=== PATIENT | male | born 1940 | race Caucasian/White ===

== ENCOUNTER → 2016-06-16 | Outpatient (CLI) | payer MEDICARE ==
[2016-06-16 10:52] LABS: ALT 73 U/L (21-72); AST 53 U/L (17-59); Cholesterol 108 mg/dL (<200); HDL Cholesterol 28 mg/dL (40-60); Triglycerides 212 mg/dL (<150)
== END | disposition home or self-care (01) ==
LOC: LABWHC1 09:51
PROVIDERS: ATTEND Internal Medicine Interventional Cardiology
DX: E78.2 Mixed hyperlipidemia (principal)
CPT/HCPCS: 36415; 80061; 84450; 84460

== ENCOUNTER → 2016-11-14 | Outpatient (CLI) | payer MEDICARE ==
[2016-11-14 10:56] LABS: ALT 66 U/L (21-72); AST 53 U/L (17-59); Alkaline Phosphatase 61 U/L (38-126); Anion Gap 8 mmol/L; Blood Urea Nitrogen 15 mg/dL (9-20); Calcium 9.2 mg/dL (8.4-10.2); Carbon Dioxide 26 mmol/L (22-30); Chloride 109 mmol/L (98-107); Cholesterol 117 mg/dL (<200); Glucose 112 mg/dL (74-99); HDL Cholesterol 29 mg/dL (40-60); Non-African American GFR(MDRD) >60 (>60 ml/min/1.73 sqM); Sodium 143 mmol/L (137-145); Total Bilirubin 0.4 mg/dL (0.2-1.3); Total Protein 6.9 g/dL (6.3-8.2)
== END | disposition home or self-care (01) ==
LOC: LABWHC1 09:45
PROVIDERS: ATTEND Internal Medicine Interventional Cardiology
DX: E78.2 Mixed hyperlipidemia (principal)
CPT/HCPCS: 36415; 80053; 80061

== ENCOUNTER 2016-12-06 16:07 | Emergency (ER) | payer MEDICARE ==
[2016-12-06 16:20] VITALS: RESP 18; TEMP 98.6
--- NOTE | 2016-12-06 16:43 | ED ---
General Adult HPI - General Chief complaint: Recheck/Abnormal Lab/Rx Stated complaint: Sent by PCP abnormal CT Time Seen by Provider: 12/06/16 16:27 Source: patient, RN notes reviewed, old records reviewed Mode of arrival: ambulatory Limitations: no limitations - History of Present Illness Initial comments: 76 yo male presents for evaluation after having an outpatient CT. CT did show a right subdural hematoma. He was called by his primary care physician and asked presented be leading emergency department. Patient has had a headache for the past 10-12 days. He did fall on November 25 striking the back of his head. There was momentary loss of consciousness, and approximately a 15 minute period where he was quite dazed. Patient was walking his dog at the time, tripped and fell backwards. He did not seek medical attention at that time. He presented to his primary care physician and CT was ordered. This did show 1.9 cm right sided subdural hematoma, no midline shift. Other than headache patient has no other complaints. No complaints of weakness. No vision changes. No nausea vomiting. - Related Data Home Medications Medication Instructions Recorded Confirmed Allopurinol [Zyloprim] 300 mg PO DAILY 10/06/15 12/06/16 Aspirin EC [Ecotrin] 162 mg PO DAILY 10/06/15 12/06/16 Cetirizine HCl [Zyrtec] 10 mg PO BID 10/06/15 12/06/16 Levothyroxine Sodium [Synthroid] 125 mcg PO DAILY 10/06/15 12/06/16 Losartan [Cozaar] 50 mg PO DAILY 10/06/15 12/06/16 Metoprolol Succinate (ER) [Toprol 50 mg PO HS 10/06/15 12/06/16 Xl] Multivitamins, Thera [Multivitamin] 1 tab PO HS 10/06/15 12/06/16 Probenecid/Colchicine 1 tab PO DAILY 10/06/15 12/06/16 [Probenecid-Colchicine Tabs] Simvastatin [Zocor] 20 mg PO HS 10/06/15 12/06/16 Fluticasone Nasal [place] [Flonase 1 - 2 spr EA NOSTRIL DAILY PRN 12/06/16 Nasal [place]] Allergies Allergy/AdvReac Type Severity Reaction Status Date / Time gluten Allergy Unknown Verified 12/06/16 16:51 Review of Systems ROS Statement: Those systems with pertinent positive or pertinent negative responses have been documented in the HPI. ROS Other: All systems not noted in ROS Statement are negative. Past Medical History Past Medical History: Cancer, Hypertension, Thyroid Disorder Additional Past Medical History / Comment(s): hx hiatal hernia, gout, skin cancer, celiac History of Any Multi-Drug Resistant Organisms: None Reported Past Surgical History: Coronary Bypass/CABG, Heart Catheterization With Stent, Orthopedic Surgery Additional Past Surgical History / Comment(s): rt knee arthroscopy, 6 cardiac stents, nohelia cataracts, vasectomy Past Anesthesia/Blood Transfusion Reactions: No Reported Reaction Date of Last Stent Placement:: approx 2010 Past Psychological History: No Psychological Hx Reported Smoking Status: Former smoker Past Alcohol Use History: None Reported Past Drug Use History: None Reported - Past Family History Mother Family Medical History: Cancer Sister(s) Family Medical History: Cancer Brother(s) Family Medical History: Cancer General Exam Limitations: no limitations General appearance: in no apparent distress Head exam: Present: atraumatic, normocephalic Eye exam: Present: normal appearance, PERRL ENT exam: Present: normal exam Neck exam: Present: normal inspection, full ROM. Absent: tenderness Respiratory exam: Present: normal lung sounds bilaterally, respiratory distress Cardiovascular Exam: Present: regular rate, normal rhythm GI/Abdominal exam: Present: soft, distended. Absent: tenderness, guarding Extremities exam: Present: normal inspection, full ROM, normal capillary refill. Absent: pedal edema Neurological exam: Present: alert, oriented X3, CN II-XII intact. Absent: motor sensory deficit Psychiatric exam: Present: normal affect, normal mood Skin exam: Present: warm, dry, intact. Absent: cyanosis, diaphoretic Course Vital Signs 12/06/16 16:16 Temperature 98.6 F Pulse Rate 69 Respiratory 18 Rate Blood Pressure 161/67 O2 Sat by Pulse 98 Oximetry EKG Findings - EKG Comments: EKG Findings:: EKG shows normal sinus rhythm, ventricular rate 69, CT of 156, QRS duration 92, QTC 447, no ST segment elevation or depression Medical Decision Making - Medical Decision Making 76 yo male presenting status post fall, this was proximally 12 days ago. Patient has had persistent headache. CT does show a right subdural hematoma 1.9 cm at its greatest dimension, no midline shift. Patient's neurologic exam is nonfocal. Laboratory studies are obtained while awaiting transfer to [facility] for trauma and neurosurgery evaluation. Patient has been ambulatory, has no other pain complaints. No other x-rays will be ordered at this time, patient may require additional x-rays at the time of evaluation at the receiving hospital. Diagnosis: Acute traumatic right subdural hematoma - Lab Data Result diagrams: 12/06/16 16:25 Lab Results 12/06/16 Range/Units 16:25 WBC 8.3 (3.8-10.6) k/uL RBC 4.18 L (4.30-5.90) m/uL Hgb 14.2 (13.0-17.5) gm/dL Hct 43.7 (39.0-53.0) % MCV 104.4 H (80.0-100.0) fL MCH 33.9 (25.0-35.0) pg MCHC 32.4 (31.0-37.0) g/dL RDW 14.6 (11.5-15.5) % Plt Count 183 (150-450) k/uL Neutrophils % 45 % Lymphocytes % 33 % Monocytes % 12 % Eosinophils % 4 % Basophils % 1 % Neutrophils # 3.8 (1.3-7.7) k/uL Lymphocytes # 2.8 (1.0-4.8) k/uL Monocytes # 1.0 (0-1.0) k/uL Eosinophils # 0.3 (0-0.7) k/uL Basophils # 0.1 (0-0.2) k/uL Macrocytosis Slight Critical Care Time Critical Care Time: Yes Total Critical Care Time: 35 Disposition Clinical Impression: Subdural hematoma Disposition: OTHER INSTITUTION NOT DEFINED Condition: Serious Referrals: Moe Ward MD [Primary Care Provider] - 1-2 days - Out of Hospital Transfer - Req. Specs Out of Hospital Transfer - Requested Specifics: Surgical ICU (Transferred to [facility], receiving Dr. Odom)
[2016-12-06 16:53] LABS: Basophils # (A) 0.1 k/uL (0-0.2); Basophils % (A) 1 %; CH 35.5; CHCM 34.2; Eosinophils # (A) 0.3 k/uL (0-0.7); Eosinophils % (A) 4 %; HCT 43.7 % (39.0-53.0); HDW 2.25; HGB 14.2 gm/dL (13.0-17.5); Luc # (Auto) 0.35; Luc % (Auto) 4; Lymphocytes # (A) 2.8 k/uL (1.0-4.8); Lymphocytes % (A) 33 %; MCH 33.9 pg (25.0-35.0); MCHC 32.4 g/dL (31.0-37.0); MCV 104.4 fL (80.0-100.0); Macrocytosis Slight; Mean Platelet Volume 7.6; Monocytes % (A) 12 %; Neutrophils # (A) 3.8 k/uL (1.3-7.7); Neutrophils % (A) 45 %; RBC 4.18 m/uL (4.30-5.90); RDW 14.6 % (11.5-15.5); WBC 8.3 k/uL (3.8-10.6); WBC (Perox) 8.05
[2016-12-06 17:02] LABS: INR 1.1 (<1.2); Partial Thromboplastin Time 24.6 sec (22.0-30.0); Prothrombin Time 11.1 sec (9.0-12.0)
[2016-12-06 17:05] LABS: ALT 47 U/L (21-72); AST 41 U/L (17-59); Alkaline Phosphatase 68 U/L (38-126); Anion Gap 12 mmol/L; Blood Urea Nitrogen 16 mg/dL (9-20); Calcium 9.3 mg/dL (8.4-10.2); Carbon Dioxide 21 mmol/L (22-30); Chloride 105 mmol/L (98-107); Glucose 105 mg/dL (74-99); Non-African American GFR(MDRD) >60 (>60 ml/min/1.73 sqM); Potassium 4.2 mmol/L (3.5-5.1); Sodium 138 mmol/L (137-145); Total Bilirubin 0.5 mg/dL (0.2-1.3); Total Protein 7.3 g/dL (6.3-8.2)
[2016-12-06 17:12] LABS: Creatine Kinase 132 U/L (55-170)
[2016-12-06 17:26] LABS: Creatine Kinase MB 1.3 ng/mL (0.0-2.4); Troponin I <0.012 ng/mL (0.000-0.034)
[2016-12-06 17:46] VITALS: BP 139/64; PULSE 67
== END 2016-12-06 18:04 | disposition other institution (70) ==
LOC: EC 16:07
DX: S06.5X9A Traumatic subdural hemorrhage with loss of consciousness of unspecified duration, initial encounter (principal); I10 Essential (primary) hypertension; E07.9 Disorder of thyroid, unspecified; Z85.828 Personal history of other malignant neoplasm of skin; Z87.891 Personal history of nicotine dependence; Z79.82 Long term (current) use of aspirin; Z79.899 Other long term (current) drug therapy; Z91.048 Other nonmedicinal substance allergy status; W01.10XA Fall on same level from slipping, tripping and stumbling with subsequent striking against unspecified object, initial encounter; Y93.K1 Activity, walking an animal
CPT/HCPCS: 36415; 70450; 80053; 82550; 82553; 84484; 85025; 85610; 85730; 86850; 86900; 86901; 93005; 99285

== ENCOUNTER → 2016-12-06 | Outpatient (CLI) | payer MEDICARE ==
--- NOTE | 2016-12-06 14:29 | CT ---
EXAMINATION TYPE: CT brain wo con DATE OF EXAM: 12/06/2016 COMPARISON: NONE HISTORY: Concussion CT DLP: [address] of the brain was performed. The ventricles, basal cisterns and sulci overlying the cerebral convexities demonstrate mild enlargem ent. There is a right-sided subdural hematoma which extends from the right frontal region through the harika etal occipital region. Greatest transverse measurement is 1.9 cm. No evidence for midline shift at th is point in time. No additional areas of hemorrhage seen. There is decreased attenuation about the periventricular white matter and deep white matter of both c erebral hemispheres, compatible with chronic small vessel ischemia. Differential diagnosis does inclu de demyelination. Osseous calvarium is intact. If symptoms persist consider MRI. IMPRESSION: 1. There is a right-sided subdural hematoma which extends from the right frontal region through the p arietal occipital region. Greatest transverse measurement is 1.9 cm. No evidence for midline shift at this point in time. Dr. Ward was notified of the aforementioned findings via telephone at approximately 2:22 PM on 2016
== END | disposition home or self-care (01) ==
LOC: RADCTMAIN 13:35
PROVIDERS: ATTEND Family Medicine
DX: S06.5X9A Traumatic subdural hemorrhage with loss of consciousness of unspecified duration, initial encounter (principal)
CPT/HCPCS: 70450

== ENCOUNTER → 2017-04-17 | Outpatient (CLI) | payer MEDICARE ==
--- NOTE | 2017-04-17 12:52 | CT ---
EXAMINATION TYPE: CT brain wo con DATE OF EXAM: 04/17/2017 HISTORY: Subdural Hemorrhage CT DLP: 1017.9 mGycm. Automated Exposure Control for Dose Reduction was Utilized. TECHNIQUE: CT scan of the head is performed without contrast. COMPARISON: CT scan of brain December 30, 2016 and older study December 06, 2016. FINDINGS: There is no acute intracranial hemorrhage or midline shift identified on current study. T here is near complete resolution of right-sided subdural hemorrhage with minimal residual hemorrhage seen superiorly measuring up to 4 mm in thickness coronal image 35. There is diffuse ventricular and sulcal prominence consistent with diffuse mild age-related cerebral atrophy. There is low-attenuatio n in the periventricular white matter consistent with chronic small vessel ischemic change. The glob es are intact and the visualized sinuses are clear. IMPRESSION: Near complete resolution of right subdural now chronic hemorrhage. No acute intracranial hemorrhage or midline shift is seen currently. There is mild diffuse age-related cerebral atrophy and moderate to severe chronic small vessel ischemic change redemonstrated.
== END | disposition home or self-care (01) ==
LOC: RADCTMAIN 12:16
PROVIDERS: ATTEND Neurological Surgery
DX: G31.9 Degenerative disease of nervous system, unspecified (principal); I67.82 Cerebral ischemia
CPT/HCPCS: 70450

== ENCOUNTER → 2017-06-15 | Outpatient (CLI) | payer MEDICARE ==
[2017-06-15 10:44] LABS: ALT 67 U/L (21-72); AST 53 U/L (17-59); Cholesterol 119 mg/dL (<200); HDL Cholesterol 33 mg/dL (40-60); LDL Cholesterol,Calculated 33 mg/dL (0-99); Triglycerides 267 mg/dL (<150)
== END | disposition home or self-care (01) ==
LOC: LABWHC1 10:05
PROVIDERS: ATTEND Internal Medicine Interventional Cardiology
DX: E78.2 Mixed hyperlipidemia (principal)
CPT/HCPCS: 36415; 80061; 84450; 84460

== ENCOUNTER → 2017-11-27 | Outpatient (CLI) | payer MEDICARE ==
[2017-11-27 11:18] LABS: ALT 46 U/L (21-72); AST 34 U/L (17-59); Albumin 3.9 g/dL (3.5-5.0); Alkaline Phosphatase 71 U/L (38-126); Anion Gap 8 mmol/L; Blood Urea Nitrogen 17 mg/dL (9-20); Calcium 9.1 mg/dL (8.4-10.2); Carbon Dioxide 25 mmol/L (22-30); Chloride 108 mmol/L (98-107); Cholesterol 115 mg/dL (<200); Glucose 101 mg/dL (74-99); HDL Cholesterol 26 mg/dL (40-60); LDL Cholesterol,Calculated 25 mg/dL (0-99); Potassium 5.1 mmol/L (3.5-5.1); Sodium 141 mmol/L (137-145); Total Bilirubin 0.3 mg/dL (0.2-1.3); Total Protein 6.9 g/dL (6.3-8.2); Triglycerides 322 mg/dL (<150)
== END ==
LOC: LABWHC1 09:44
PROVIDERS: ATTEND Internal Medicine Interventional Cardiology
DX: E78.2 Mixed hyperlipidemia (principal)
CPT/HCPCS: 36415; 80053; 80061

== ENCOUNTER → 2018-08-20 | Outpatient (CLI) | payer MEDICARE ==
--- NOTE | 2018-08-20 16:34 | XR ---
EXAMINATION TYPE: XR chest 2V DATE OF EXAM: 08/20/2018 COMPARISON: Prior chest x-ray 03/14/2012 HISTORY: Cough TECHNIQUE: Frontal and lateral views of the chest are obtained. FINDINGS: Patient is post median sternotomy. There is no focal air space opacity, pleural effusion, o r pneumothorax seen. The cardiac silhouette size is within normal limits. The osseous structures a re intact. Calcified granuloma again noted in the left upper lobe is stable. There is bronchial wall thickening. IMPRESSION: Correlate for bronchitis, reactive airways disease, follow-up as indicated.
== END | disposition home or self-care (01) ==
LOC: RADXRMAIN 16:02
PROVIDERS: ATTEND Family Medicine
DX: R05 Cough (principal)
CPT/HCPCS: 71046

== ENCOUNTER 2018-10-24 09:25 | Day surgery (SDC) | payer MEDICARE ==
[2018-10-19 15:47] VITALS: BMI 33.9
[~2018-10-24 09:25] MED LIST: LACTATED RINGERS 1,000 ML IV SCH; LIDOCAINE 1% 20 ML VIAL (10MG/ML) FOR IV START INTRADERMA PRN
[2018-10-24 10:14] VITALS: TEMP 98.1
[2018-10-24] MEDS ORDERED: PROPOFOL 10 MG/ML 20 ML VIAL IV ONE (11:04)
[2018-10-24] MEDS ORDERED: LIDOCAINE 1% INJ 10MG/ML (20 ML MDV) ONE (11:04)
--- NOTE | 2018-10-24 11:45 | P.PCN ---
Date of Procedure: 10/24/18 Procedure(s) Performed: Brief history: Patient is a pleasant 78-year-old white male, scheduled for an elective upper endoscopy as well as colonoscopy as a part of evaluation of history of celiac disease and recent change in bowel habits for the last 6 months duration. He has been on a strict gluten-free diet. Lately has been having intermittent diarrhea and lower abdominal discomfort. Last colonoscopy was 3 years ago and was noted to have multiple colon polyps. Procedure performed: Esophagogastroduodenoscopy Colonoscopy with snare polypectomy and tattooing with Lauren ink Preoperative diagnosis: History of celiac disease/change in bowel habits History of colon polyps Anesthesia: MAC Procedure: After informed consent was obtained from the patient was brought into the endoscopy unit and IV sedation was administered by anesthesia under continuous monitoring. Initially upper endoscopy was done. The Olympus GF 160 video endoscope was inserted inserted into the mouth and esophagus intubated without any difficulty and was gradually advanced into the stomach and duodenum and carefully examined. The bulb and second part of the duodenum and mild duodenitis and multiple biopsies were done from the second part of the duodenum because of history of celiac disease. The scope was then withdrawn into the stomach adequately insufflated with air and upon careful examination the antrum had mild gastritis. Biopsies were done from this area. The body, cardia and fundus appeared normal. The scope was then withdrawn into the esophagus. The GE junction was located at 40 cm to the incisors. It appeared regular with no erythema erosions or ulcerations. Rest of the esophagus appeared normal. Patient tolerated the procedure well. At this time the patient continued to remain sedation. Initial digital rectal examination was normal. Olympus CF 160 video colonoscope was then inserted into the rectum and gradually advanced to the cecum without any difficulty. Careful examination was performed as the scope was gradually being withdrawn. The prep was excellent. The cecum, appeared normal. In the ascending colon there was a 5 mm sessile polyp removed by snare polypectomy. In the transverse colon there were 4 polyps 3 of which measured 5-7 mm in size and the other one 1 cm that was removed by snare polypectomy. In the proximal descending colon there were 3 polyps all measuring between 5-6 mm in size removed by snare polypectomy. In the distal descending colon at 50 cm from the anal verge there was a 3 cm broad- based polyp that was partially removed by piecemeal snare polypectomy and complete polypectomy could not be accomplished. Tattooing was performed with Lauren ink. The rest of the ascending colon, transverse colon, descending colon, sigmoid colon and rectum appeared normal. Scattered similar diverticulosis seen. Retroflexion was performed in the rectum and no lesions were noted. Patient tolerated the procedure well. Impression: 1. Upper endoscopy revealed mild duodenitis and antral gastritis 2. Colonoscopy revealed: a) 5 mm sessile cecal polyp status post polypectomy b) 5-7 mm 3 and 1 cm broad-based transverse colon polyps status post polypectomy c) 3 polyps in the proximal descending colon measuring between 5 mm to 6 mm in size status post polypectomy d) 3 cm broad-based distal descending colon Polyp at 50 cm from the anal verge status post partial piecemeal snare polypectomy followed by tattooing with Lauren ink. Complete polypectomy not accomplished e) scattered similar diverticulosis Recommendations: Findings of this examination were discussed with the patient as well as his family. He was advised to follow with the biopsy results. He'll be seen in office in 1 week and based the biopsy results will plan a repeat colonoscopy in 3-6 months.. In the meantime he was advised to remain on a strict gluten-free diet.
[2018-10-24 11:48] VITALS: RESP 16
[2018-10-24 12:08] VITALS: BP 166/90; PULSE 60
== END 2018-10-24 12:36 | disposition home or self-care (01) ==
LOC: ORWHC2ENDO 09:25
PROVIDERS: ATTEND Internal Medicine Gastroenterology
DX: K90.0 Celiac disease (principal); Z86.010 Personal history of colon polyps; K29.80 Duodenitis without bleeding; K29.50 Unspecified chronic gastritis without bleeding; K57.30 Diverticulosis of large intestine without perforation or abscess without bleeding; B96.81 Helicobacter pylori [H. pylori] as the cause of diseases classified elsewhere; D12.2 Benign neoplasm of ascending colon; D12.3 Benign neoplasm of transverse colon; D12.4 Benign neoplasm of descending colon; D12.0 Benign neoplasm of cecum; Z88.1 Allergy status to other antibiotic agents; Z91.018 Allergy to other foods; I25.10 Atherosclerotic heart disease of native coronary artery without angina pectoris; I10 Essential (primary) hypertension; E78.5 Hyperlipidemia, unspecified; Z87.891 Personal history of nicotine dependence; E07.9 Disorder of thyroid, unspecified; M10.9 Gout, unspecified; Z79.890 Hormone replacement therapy; Z79.899 Other long term (current) drug therapy
CPT/HCPCS: 45385; 43239; 44404; J2001; J2704; 88305; 88342

== ENCOUNTER → 2018-11-06 | Outpatient (CLI) | payer MEDICARE | END | disposition home or self-care (01) | LOC: LABPAT 16:40 | PROVIDERS: ATTEND Surgery | DX: Z01.818 Encounter for other preprocedural examination (principal); Z01.812 Encounter for preprocedural laboratory examination; K63.5 Polyp of colon | CPT/HCPCS: 80051; 85025; 86850; 86900; 86901; 93005 ==

== ENCOUNTER 2018-11-15 05:44 | Inpatient (IN) | payer MEDICARE ==
[2018-11-06 17:07] LABS: Basophils # (A) 0.1 k/uL (0-0.2); Basophils % (A) 1 %; Eosinophils # (A) 0.2 k/uL (0-0.7); Eosinophils % (A) 3 %; HGB 13.6 gm/dL (13.0-17.5); Lymphocytes # (A) 3.5 k/uL (1.0-4.8); Lymphocytes % (A) 42 %; MCH 33.9 pg (25.0-35.0); MCHC 33.2 g/dL (31.0-37.0); MCV 102.1 fL (80.0-100.0); Macrocytosis Slight; Mean Platelet Volume 7.8; Monocytes # (A) 0.7 k/uL (0-1.0); Monocytes % (A) 8 %; Neutrophils # (A) 3.6 k/uL (1.3-7.7); Neutrophils % (A) 42 %; Platelet Count 204 k/uL (150-450); RBC 4.02 m/uL (4.30-5.90); RDW 15.8 % (11.5-15.5); WBC 8.4 k/uL (3.8-10.6)
[2018-11-06 17:32] LABS: Potassium 4.9 mmol/L (3.5-5.1)
[2018-11-12 16:22] VITALS: BMI 33.4
[~2018-11-15 05:44] MED LIST changes: +HEPARIN SODIUM,PORCINE 5,000 UNIT/ML 1 ML VIAL SQ ONE; -LACTATED RINGERS 1,000 ML IV SCH; -LIDOCAINE 1% 20 ML VIAL (10MG/ML) FOR IV START INTRADERMA PRN; +metroNIDAZOLE-NS PMX 500 MG in SALINE 1 100ML.BAG IVPB ONE
[2018-11-15] MEDS ORDERED: LIDOCAINE 1% 20 ML VIAL (10MG/ML) FOR IV START INTRADERMA PRN (05:57)
[2018-11-15] MEDS ORDERED: ONDANSETRON 4 MG/2 ML VIAL IVP ONE (05:57)
[2018-11-15] MEDS ORDERED: DEXAMETHASONE SOD PHOSPHATE 10 MG/ML 1 ML VIAL IV ONE (05:57)
[2018-11-15] MEDS ORDERED: SCOPOLAMINE 1.5MG/72HR PATCH TRANSDERM ONE (05:57)
[2018-11-15] MEDS ORDERED: HYDROmorphone 0.5 MG/0.5 ML SYRINGE IVP PRN (05:57)
[2018-11-15] MEDS: LACTATED RINGERS 1,000 ML IV SCH (06:27)
[2018-11-15] MEDS ORDERED: MIDAZOLAM PF (FBP) 2 MG/2 ML VIAL IV ONE (07:02)
[2018-11-15] MEDS ORDERED: NALBUPHINE 10 MG/ML (1 ML AMP) IV PRN (07:32)
[2018-11-15] MEDS ORDERED: ROPIVACAINE 400 MG, HYDROMORPHONE (PF) 5 MG in SODIUM CHLORIDE 0.9% 170 ML EPIDURAL PRN (07:32)
[2018-11-15] MEDS ORDERED: diphenhydrAMINE 50 MG/ML 1 ML VIAL IVP PRN (07:32)
[2018-11-15] MEDS ORDERED: NALOXONE 0.4 MG/ML 1 ML VIAL IV PRN (07:32)
[2018-11-15] MEDS ORDERED: PHENYLEPHRINE-0.9% NACL SYG 1 MG/10 ML SYRINGE ONE (07:43)
[2018-11-15] MEDS ORDERED: ePHEDrine SULFATE/0.9% NACL/PF 50 MG/5 ML SYRINGE IV ONE (07:43)
[2018-11-15] MEDS ORDERED: fentaNYL (PF) 50 MCG/ML 2 ML AMP ONE (07:43)
[2018-11-15] MEDS ORDERED: ROCURONIUM BROMIDE 10 MG/ML 10 ML VIAL IV ONE (07:43)
[2018-11-15] MEDS ORDERED: GLYCOPYRROLATE 0.2 MG/ML 2 ML VIAL ONE (07:43)
[2018-11-15] MEDS ORDERED: LIDOCAINE 1% INJ 10MG/ML (20 ML MDV) ONE (07:43)
[2018-11-15] MEDS ORDERED: KETOROLAC 30 MG/ML 1 ML VIAL ONE (07:43)
[2018-11-15] MEDS ORDERED: MIDAZOLAM 2 MG/2 ML VIAL ONE (07:43)
[2018-11-15] MEDS ORDERED: PROPOFOL 10 MG/ML 20 ML VIAL IV ONE (07:43)
[2018-11-15] MEDS ORDERED: NEOSTIGMINE 1 MG/ML 10 ML VIAL ONE (07:43)
[2018-11-15] MEDS ORDERED: ALVIMOPAN 12 MG CAPSULE PO ONE (07:44)
--- NOTE | 2018-11-15 07:55 | P.GSHP ---
History of Present Illness H&P Date: 11/15/18 Chief Complaint: Left colon polyp This a 78-year-old male who underwent previous colonoscopy by Dr. Gallegos. Patient's found to have aTubular adenoma with focal high grade dysplasia. Evaluation focally limited due to severe distorting cautery artifact. Patient presents today for laparoscopic left colectomy. Past Medical History Past Medical History: Coronary Artery Disease (CAD), Cancer, Hyperlipidemia, Hypertension, Thyroid Disorder Additional Past Medical History / Comment(s): colon polyps, hx hiatal hernia, gout, basal cell skin cancer, celiac History of Any Multi-Drug Resistant Organisms: None Reported Past Surgical History: Coronary Bypass/CABG, Heart Catheterization With Stent, Orthopedic Surgery Additional Past Surgical History / Comment(s): rt knee arthroscopy, 6 cardiac stents, nohelia cataracts, vasectomy, colonoscopy Past Anesthesia/Blood Transfusion Reactions: No Reported Reaction Date of Last Stent Placement:: 2010 Smoking Status: Former smoker - Past Family History Mother Family Medical History: Cancer Sister(s) Family Medical History: Cancer Brother(s) Family Medical History: Cancer Medications and Allergies Home Medications Medication Instructions Recorded Confirmed Type Allopurinol [Zyloprim] 300 mg PO DAILY 10/06/15 11/15/18 History Aspirin EC [Ecotrin] 81 mg PO DAILY 10/06/15 11/15/18 History Cetirizine HCl [Zyrtec] 10 mg PO BID 10/06/15 11/15/18 History Levothyroxine Sodium [Synthroid] 125 mcg PO DAILY 10/06/15 11/15/18 History Losartan [Cozaar] 50 mg PO DAILY 10/06/15 11/15/18 History Metoprolol Succinate (ER) [Toprol 50 mg PO HS 10/06/15 11/15/18 History Xl] Multivitamins, Thera [Multivitamin] 1 tab PO HS 10/06/15 11/15/18 History Probenecid/Colchicine 1 tab PO DAILY 10/06/15 11/15/18 History [Probenecid-Colchicine Tabs] Simvastatin [Zocor] 20 mg PO HS 10/06/15 11/15/18 History Fluticasone Nasal [place] [Flonase 1 - 2 spr EA NOSTRIL DAILY PRN 12/06/16 11/15/18 History Nasal [place]] Dicyclomine [Bentyl] 10 mg PO TID PRN 10/19/18 11/15/18 History Allergies Allergy/AdvReac Type Severity Reaction Status Date / Time gluten Allergy celiac dx Verified 11/15/18 06:26 erythromycin base AdvReac Nausea & Verified 11/15/18 06:26 Vomiting & Diarrhea Surgical - Exam Vital Signs Temp Pulse Resp BP Pulse Ox 97 F L 63 16 175/77 97 11/15/18 06:41 11/15/18 06:41 11/15/18 06:41 11/15/18 06:41 11/15/18 06:41 - General well developed, well nourished, no distress - Eyes PERRL - ENT normal pinna - Neck no masses - Respiratory normal expansion - Cardiovascular Rhythm: regular - Abdomen Abdomen: soft, non tender Results - Labs 11/06/18 16:51 11/06/18 16:51 Assessment and Plan Assessment: Left colon polyp with high-grade dysplasia. Patient will undergo laparoscopic left colectomy. Patient with a risk of surgery including conversion to the open procedure and injury to bowel and possible colostomy.
[2018-11-15] MEDS ORDERED: BUPIVACAINE (PF) 0.25% 30 ML VIAL SQ ONE (08:34)
[2018-11-15] MEDS ORDERED: LACTATED RINGERS 1,000 ML IV ONE (09:09)
[2018-11-15] MEDS ORDERED: ONDANSETRON 4 MG/2 ML VIAL IVP PRN (10:37)
[2018-11-15] MEDS: D5-0.45% NACL WITH KCL 20MEQ/L 1,000 ML IV SCH ×2 (13:50→20:06)
[2018-11-15] MEDS ORDERED: FLUTICASONE 50MCG/SPRAY NASAL 16GM EA NOSTRIL PRN (14:26)
[2018-11-15] MEDS: METOPROLOL SUCCINATE (ER) 50 MG TAB.ER.24H PO SCH (20:05)
[2018-11-15] MEDS ORDERED: SODIUM CHLORIDE 0.9% 500 ML 500 ML IV ONE (21:21)
[2018-11-15] MEDS: ATORVASTATIN 10 MG TAB PO SCH (21:38)
--- NOTE | 2018-11-15 22:05 | P.PN ---
Progress Note - Text Progress Note Date: 11/15/18 Anesthesia Called to see patient regarding low blood pressure with epidural in place. Verbal order given to pause epidural for 4 hours and give 500cc 0.9 NaCl bolus. By my arrival, patient's blood pressure has already recovered. Mental status was improving. BP returned to 90s over 60s. Communication order given for a second 500cc bolus 0.9 NaCl bolus should bp fall below 90 systolic again. VS q15 minutes x8, then routine. Update: Followed up an hour later at 10pm. Patient was wide awake and a&0x3. Pain free and conversational. Reconfirmed with nurse to continue holding epidural for 4 hours and resume at half original rate. An additional bolus has been ordered PRN as well. BP holding in the 90's systolic.
--- NOTE | 2018-11-15 22:53 | P.CONS ---
History of Present Illness - Reason for Consult Consult date: 11/15/18 - Chief Complaint History of high-grade dysplasia colon polyp - History of Present Illness This is a consultation on an 78-year-old white male with known history of previous colon polyps who had repeat colonoscopy and was found to have a high- grade dysplasia adenoma. Laparoscopic colectomy was performed. The patient is now seen postoperatively. He has an underlying history of hypertension which has been fairly well controlled. No significant nausea, vomiting or diarrhea stated. He has an underlying history of gluten and erythromycin allergy. Review of Systems Constitutional: Denies chills, Denies fever Eyes: denies blurred vision, denies pain Ears, nose, mouth and throat: Denies headache, Denies sore throat Cardiovascular: Denies chest pain, Denies shortness of breath Respiratory: Denies cough Musculoskeletal: Denies myalgias Integumentary: Denies pruritus, Denies rash Neurological: Denies numbness, Denies weakness Endocrine: Denies fatigue, Denies weight change Past Medical History Past Medical History: Coronary Artery Disease (CAD), Cancer, Hyperlipidemia, Hypertension, Thyroid Disorder Additional Past Medical History / Comment(s): colon polyps, hx hiatal hernia, gout, basal cell skin cancer, celiac History of Any Multi-Drug Resistant Organisms: None Reported Past Surgical History: Coronary Bypass/CABG, Heart Catheterization With Stent, Orthopedic Surgery Additional Past Surgical History / Comment(s): rt knee arthroscopy, 6 cardiac stents, nohelia cataracts, vasectomy, colonoscopy Past Anesthesia/Blood Transfusion Reactions: No Reported Reaction Date of Last Stent Placement:: 2010 Past Psychological History: No Psychological Hx Reported Smoking Status: Former smoker Past Alcohol Use History: Rare Additional Past Alcohol Use History / Comment(s): quit smoking 1978, smoked for 30 yrs, 1 PPD Past Drug Use History: None Reported - Past Family History Mother Family Medical History: Cancer Sister(s) Family Medical History: Cancer Brother(s) Family Medical History: Cancer Medications and Allergies Home Medications Medication Instructions Recorded Confirmed Type Allopurinol [Zyloprim] 300 mg PO DAILY 10/06/15 11/15/18 History Aspirin EC [Ecotrin] 81 mg PO DAILY 10/06/15 11/15/18 History Cetirizine HCl [Zyrtec] 10 mg PO BID 10/06/15 11/15/18 History Levothyroxine Sodium [Synthroid] 125 mcg PO DAILY 10/06/15 11/15/18 History Losartan [Cozaar] 50 mg PO DAILY 10/06/15 11/15/18 History Metoprolol Succinate (ER) [Toprol 50 mg PO HS 10/06/15 11/15/18 History Xl] Multivitamins, Thera [Multivitamin] 1 tab PO HS 10/06/15 11/15/18 History Probenecid/Colchicine 1 tab PO DAILY 10/06/15 11/15/18 History [Probenecid-Colchicine Tabs] Simvastatin [Zocor] 20 mg PO HS 10/06/15 11/15/18 History Fluticasone Nasal [place] [Flonase 1 - 2 spr EA NOSTRIL DAILY PRN 12/06/16 11/15/18 History Nasal [place]] Dicyclomine [Bentyl] 10 mg PO TID PRN 10/19/18 11/15/18 History Hydrocodone/Acetaminophen [[place] 1 tab PO Q4HR PRN 3 Days #18 tab 11/15/18 Rx 5-325] Allergies Allergy/AdvReac Type Severity Reaction Status Date / Time gluten Allergy celiac dx Verified 11/15/18 06:26 erythromycin base AdvReac Nausea & Verified 11/15/18 06:26 Vomiting & Diarrhea Physical Exam Vitals: Vital Signs Temp Pulse Resp BP BP Pulse Ox 11/15/18 21:06 14 98/57 96 11/15/18 20:55 98.4 F 88 12 62/41 92 L 11/15/18 19:00 98.0 F 78 18 93/56 96 11/15/18 15:24 78 16 11/15/18 14:22 97.7 F 78 16 93/51 95 11/15/18 13:00 75 93/54 11/15/18 12:45 71 97/53 11/15/18 12:30 72 97/55 11/15/18 12:15 72 85/49 11/15/18 12:00 79 84/52 11/15/18 11:45 74 103/49 11/15/18 11:30 70 108/52 11/15/18 11:15 73 127/68 11/15/18 11:00 97.8 F 72 14 121/63 96 11/15/18 10:31 73 16 154/70 99 09/19/19 10:15 73 16 161/69 99 11/15/18 10:07 97.6 F 80 16 185/81 99 11/15/18 06:41 97 F L 63 16 175/77 97 Intake and Output 11/15/18 11/15/18 11/15/18 06:59 14:59 22:59 Intake Total 200 2638 29.4 Output Total 700 Balance 200 1938 29.4 Intake: IV 200 1716 Intake, IV Titration 822 29.4 Amount Lactated Ringers 1,000 ml 800 @ 20 mls/hr IV .Q24H HEATHER Rx#:[id number] Ropivacaine 400 mg 22 29.4 Hydromorphone (Pf) 5 mg In Sodium Chloride 0.9% 170 ml @ Per Protocol EPIDURAL .Q0M PRN Rx#: [id number] Oral 100 Output: Urine 600 Estimated Blood Loss 100 Other: Voiding Method Indwelling Catheter - Constitutional General appearance: no acute distress - EENT Eyes: EOMI - Neck Neck: no lymphadenopathy - Respiratory Respiratory: bilateral: CTA - Cardiovascular Rhythm: regular Heart sounds: normal: S1, S2 Abnormal Heart Sounds: no S3 Gallop - Gastrointestinal General gastrointestinal: soft, no tenderness - Musculoskeletal Musculoskeletal: strength equal bilaterally - Psychiatric Psychiatric: A&O x's 3, appropriate affect, intact judgment & insight Results CBC & Chem 7: 11/06/18 16:51 11/06/18 16:51 Assessment and Plan (1) Hyperlipidemia Current Visit: Yes Status: Acute Code(s): E78.5 - HYPERLIPIDEMIA, UNSPECIFIED SNOMED Code(s): 59172842 (2) History of colectomy Current Visit: Yes Status: Acute Code(s): Z90.49 - ACQUIRED ABSENCE OF OTHER SPECIFIED PARTS OF DIGESTIVE TRACT SNOMED Code(s): 779203874 (3) Hypertension Current Visit: Yes Status: Acute Code(s): I10 - ESSENTIAL (PRIMARY) HYPERTENSION SNOMED Code(s): 05249044 (4) Gout Current Visit: Yes Status: Acute Code(s): M10.9 - GOUT, UNSPECIFIED SNOMED Code(s): 16679623 (5) Tubulovillous adenoma Current Visit: Yes Status: Acute Code(s): D36.9 - BENIGN NEOPLASM, UNS PECIFIED SITE SNOMED Code(s): 755913546 Plan: Reconcile medications. Restart antihypertensive medications. Diet to be advanced as per surgery. Check CBC and CMP in a.m. Dr. Sandoval's group will be covering for the weekend. Time with Patient: Greater than 30
[2018-11-16] MEDS ORDERED: SODIUM CHLORIDE 0.9% 500 ML 500 ML IV ONE (01:20)
[2018-11-16] MEDS: D5-0.45% NACL WITH KCL 20MEQ/L 1,000 ML IV SCH ×3 (02:01→16:22)
[2018-11-16] MEDS: LACTATED RINGERS 1,000 ML IV SCH (02:02)
[2018-11-16] MEDS: LEVOTHYROXINE 125 MCG TAB PO SCH (05:11)
--- NOTE | 2018-11-16 07:24 | P.PN ---
Progress Note - Text Progress Note Date: 11/16/18 post op day one status post left hemicolectomy ,epidural catheter placed for post op pain control , epidural infusion was at 4 ml/h , pateints developed hypotensions ,epidural infusions was on hold ovenights , currenely blood pressures within normal limits , ,we will restart the epidural infusion at 3ml /h , we will follow up
[2018-11-16] MEDS: LOSARTAN 50 MG TAB PO SCH (09:01)
[2018-11-16] MEDS: ALVIMOPAN 12 MG CAPSULE PO SCH ×2 (09:04→20:17)
[2018-11-16] MEDS: ALLOPURINOL 300 MG TAB PO SCH (09:04)
[2018-11-16] MEDS ORDERED: ONDANSETRON 4 MG/2 ML VIAL IVP PRN (12:03)
[2018-11-16] MEDS: FAMOTIDINE 20 MG TAB PO SCH ×2 (12:08→20:17)
--- NOTE | 2018-11-16 12:33 | P.PN ---
Progress Note - Text Progress Note Date: 11/16/18 The patient is resting comfortably in his bed. He denies any significant abdominal pain. On exam his vital signs are stable. His abdomen soft. His incision site is clean dry tach. Status post left colectomy for colonic polyp. Patient remained on clear liquid diet.
--- NOTE | 2018-11-16 14:59 | P.PN ---
Subjective On-call hospitalist covering for Dr. Ward on Monday and over the weekend This is a pleasant 78 years old male with past medical history of coronary artery disease, hyperlipidemia, hypertension, hypothyroidism, status post CABG and stent placement . He was admitted for laparoscopic left colectomy for tubular adenoma with focal high-grade dysplasia on colonoscopy done recently for him, however patient ended up having open cholectomy with colocolic anastomosis. Today is postop day 1. Patient is doing well with no abdominal pain. He was getting out of bed to chair. Vitals are stable. Hemoglobin stable at 13.6, no leukocytosis. He is on D5 half-normal saline at 1 20 mg/h, also he is on Dilaudid for pain. Objective - Vital Signs Vital signs: Vital Signs Temp 99.1 F 11/16/18 14:07 Pulse 82 11/16/18 14:07 Resp 16 11/16/18 14:07 BP 120/63 11/16/18 14:07 Pulse Ox 97 11/16/18 14:07 Intake & Output 11/15/18 11/16/18 11/16/18 18:59 06:59 18:59 Intake Total 2667.4 480 708 Output Total 700 200 650 Balance 1967.4 280 58 Intake: IV 1716 Intake, IV Titration 851.4 708 Amount D5-0.45% NaCl with KCl 625 20Meq/l 1,000 ml @ 125 mls/hr IV .Q8H [facility] Rx#: [id number] Lactated Ringers 1,000 ml 800 @ 20 mls/hr IV .Q24H [facility] Rx#:[id number] Ropivacaine 400 mg 51.4 83 Hydromorphone (Pf) 5 mg In Sodium Chloride 0.9% 170 ml @ Per Protocol EPIDURAL .Q0M PRN Rx#: [id number] Oral 100 480 Output: Urine 600 200 650 Uretheral (Grover) 650 Estimated Blood Loss 100 Other: Voiding Method Indwelling Catheter Indwelling Catheter - Exam GENERAL: The patient is alert and oriented x3, not in any acute distress. Well developed, well nourished. HEENT: Pupils are round and equally reacting to light. EOMI. No scleral icterus. No conjunctival pallor. Normocephalic, atraumatic. No pharyngeal erythema. No thyromegaly. CARDIOVASCULAR: S1 and S2 present. No murmurs, rubs, or gallops. PULMONARY: Chest is clear to auscultation, no wheezing or crackles. -ABDOMEN: Soft, nontender, nondistended, normoactive bowel sounds. No palpable organomegaly. Vertical wound in the midline, with dressing in place, right side puncture wound for laparoscopic with roman in place. MUSCULOSKELETAL: No joint swelling or deformity. EXTREMITIES: No cyanosis, clubbing, or pedal edema. NEUROLOGICAL: Gross neurological examination did not reveal any focal deficits. SKIN: No rashes. no petechiae. - Labs CBC & Chem 7: 11/06/18 16:51 11/06/18 16:51 Assessment and Plan Assessment: Status post open left colectomy for tubular adenoma with focal high-grade dysplasia history of coronary artery disease status post CABG and stent placement in Hypertension Hyperlipidemia Hypothyroidism Plan: This is a pleasant 78 years old male who presents for left colectomy for tubular adenoma with focal hyperplasia. Postoperative care postprimary surgical team as well as pain management. Patient is doing well. Continue with pain management, he also gets epidural which be followed closely by anesthesiologist, continue with IV fluid, check electrolytes. Patient is on a clear liquid diet currently. Monitor vitals and labs.Labs and medication were reviewed.. Continue same treatment. Continue with symptomatic treatment. Resume home medication. Monitor lytes and vitals. DVT and GI prophylaxis. Further recommendations of the clinical course of the patient DVT prophylaxis: As per the primary surgical team, we recommend subcu heparin 5000 units twice a day if it's okay with surgical team GI Prophylaxis: Pepcid
[2018-11-16] MEDS ORDERED: diphenhydrAMINE 25 MG CAP PO PRN (15:48)
[2018-11-16 16:13] LABS: Calcium 8.4 mg/dL (8.4-10.2); Potassium 4.5 mmol/L (3.5-5.1)
[2018-11-16] MEDS: METOPROLOL SUCCINATE (ER) 50 MG TAB.ER.24H PO SCH (20:17)
[2018-11-16] MEDS: ATORVASTATIN 10 MG TAB PO SCH (20:17)
[2018-11-16] MEDS: HEPARIN SODIUM,PORCINE 5,000 UNIT/ML 1 ML VIAL SQ SCH (20:17)
[2018-11-16] MEDS: D5-0.9% NACL WITH KCL 20 MEQ/L 1,000 ML IV SCH (22:50)
[2018-11-17] MEDS: LACTATED RINGERS 1,000 ML IV SCH (05:44)
[2018-11-17] MEDS: D5-0.45% NACL WITH KCL 20MEQ/L 1,000 ML IV SCH (05:47)
[2018-11-17] MEDS: LEVOTHYROXINE 125 MCG TAB PO SCH (05:48)
[2018-11-17 08:18] LABS: Calcium 8.5 mg/dL (8.4-10.2)
[2018-11-17 08:19] LABS: Basophils # (A) 0.2 k/uL (0-0.2); Basophils % (A) 2 %; Eosinophils # (A) 0.2 k/uL (0-0.7); Eosinophils % (A) 1 %; HGB 11.3 gm/dL (13.0-17.5); Lymphocytes # (A) 2.1 k/uL (1.0-4.8); Lymphocytes % (A) 15 %; MCH 34.2 pg (25.0-35.0); MCHC 33.2 g/dL (31.0-37.0); Macrocytosis Slight; Monocytes # (A) 1.5 k/uL (0-1.0); Monocytes % (A) 10 %; Neutrophils # (A) 10.1 k/uL (1.3-7.7); Neutrophils % (A) 70 %; Platelet Count 147 k/uL (150-450); RDW 14.3 % (11.5-15.5); WBC 14.4 k/uL (3.8-10.6)
[2018-11-17 08:33] LABS: Potassium 4.9 mmol/L (3.5-5.1)
[2018-11-17] MEDS: LOSARTAN 50 MG TAB PO SCH (09:02)
[2018-11-17] MEDS: HEPARIN SODIUM,PORCINE 5,000 UNIT/ML 1 ML VIAL SQ SCH ×2 (09:02→21:22)
[2018-11-17] MEDS: ALLOPURINOL 300 MG TAB PO SCH (09:02)
[2018-11-17] MEDS: FAMOTIDINE 20 MG TAB PO SCH ×2 (09:02→21:22)
[2018-11-17] MEDS: ALVIMOPAN 12 MG CAPSULE PO SCH ×2 (09:02→21:22)
[2018-11-17] MEDS: ALBUTEROL NEBULIZED 2.5 MG/3 ML INHALATION PRN ×3 (10:00→20:41)
--- NOTE | 2018-11-17 10:50 | P.PN ---
Subjective Progress Note Date: 11/17/18 Principal diagnosis: Colon mass Patient doing well today. Pain is well-controlled. He is out of bed into the chair. No flatus. Increased belching. Objective - Vital Signs Vital signs: Vital Signs Temp 98.6 F 11/17/18 07:35 Pulse 80 11/17/18 10:11 Resp 18 11/17/18 07:35 BP 144/71 11/17/18 07:35 Pulse Ox 95 11/17/18 07:35 Intake & Output 11/16/18 11/17/18 11/17/18 18:59 06:59 18:59 Intake Total 708 950 Output Total 2049 3500 Balance -1342 950 -3500 Intake: Intake, IV Titration 708 900 Amount D5-0.45% NaCl with KCl 625 20Meq/l 1,000 ml @ 125 mls/hr IV .Q8H [facility] Rx#: [id number] D5-0.9% NaCl with KCl 20 900 Meq/l 1,000 ml @ 75 mls/ hr IV .[id number] [facility] Rx#: [id number] Ropivacaine 400 mg 83 Hydromorphone (Pf) 5 mg In Sodium Chloride 0.9% 170 ml @ Per Protocol EPIDURAL .Q0M PRN Rx#: [id number] Oral 50 Output: Urine 2049 3500 Uretheral (Grover) 2049 Other: Voiding Method Indwelling Catheter Indwelling Catheter Indwelling Catheter # Voids 2 - Exam Abdomen: Soft, mild distention, dressing clean and dry, mild tenderness - Labs CBC & Chem 7: 11/17/18 06:50 11/17/18 06:50 Labs: Abnormal Lab Results - Last 24 Hours (Table) 11/16/18 11/17/18 11/17/18 Range/Units 15:08 06:50 06:50 WBC 14.4 H (3.8-10.6) k/uL RBC 3.30 L (4.30-5.90) m/uL Hgb 11.3 L (13.0-17.5) gm/dL Hct 34.0 L (39.0-53.0) % MCV 103.0 H (80.0-100.0) fL Plt Count 147 L (150-450) k/uL Neutrophils # 10.1 H (1.3-7.7) k/uL Monocytes # 1.5 H (0-1.0) k/uL Sodium 132 L 135 L (137-145) mmol/L Carbon Dioxide 19 L 21 L (22-30) mmol/L BUN 27 H (9-20) mg/dL Creatinine 1.38 H (0.66-1.25) mg/dL Glucose 125 H 119 H (74-99) mg/dL Assessment and Plan (1) Tubulovillous adenoma Narrative/Plan: Patient doing fairly well after recent colectomy. Continue increasing activity. We'll consult physical therapy. Repeat labs tomorrow. Stay on clears. Current Visit: Yes Status: Acute Code(s): D36.9 - BENIGN NEOPLASM, UNSPECIFIED SITE SNOMED Code(s): 217265939
--- NOTE | 2018-11-17 11:06 | P.PN ---
Progress Note - Text Progress Note Date: 11/17/18 Patient's postop day 2 catheter day #3 from a left hemicolectomy. His blood pressure has maintained overnight with the current settings. He was decreased yesterday secondary to hypotension. This time he's been able to get out of bed with minimal discomfort. He doesn't have any radicular symptoms or any numbness or tingling in his legs. He is able to stand. Denies any altered mental status or increased pruritus. We will likely continue epidural catheter for 1 more day.
[2018-11-17] MEDS: D5-0.9% NACL WITH KCL 20 MEQ/L 1,000 ML IV SCH ×2 (12:33→21:24)
[2018-11-17] MEDS: ATORVASTATIN 10 MG TAB PO SCH (21:22)
[2018-11-17] MEDS: METOPROLOL SUCCINATE (ER) 50 MG TAB.ER.24H PO SCH (21:22)
[2018-11-18] MEDS: LACTATED RINGERS 1,000 ML IV SCH (03:18)
[2018-11-18] MEDS: LEVOTHYROXINE 125 MCG TAB PO SCH (05:09)
[2018-11-18 06:52] LABS: Basophils # (A) 0.1 k/uL (0-0.2); Basophils % (A) 1 %; Eosinophils # (A) 0.2 k/uL (0-0.7); Eosinophils % (A) 2 %; HCT 31.4 % (39.0-53.0); HGB 10.8 gm/dL (13.0-17.5); Lymphocytes # (A) 2.2 k/uL (1.0-4.8); Lymphocytes % (A) 19 %; MCH 34.5 pg (25.0-35.0); MCHC 34.4 g/dL (31.0-37.0); MCV 100.2 fL (80.0-100.0); Macrocytosis Slight; Mean Platelet Volume 8.4; Monocytes % (A) 9 %; Neutrophils # (A) 7.7 k/uL (1.3-7.7); Neutrophils % (A) 67 %; Platelet Count 112 k/uL (150-450); RBC 3.13 m/uL (4.30-5.90); RDW 15.9 % (11.5-15.5); WBC 11.5 k/uL (3.8-10.6)
[2018-11-18 07:53] LABS: Anion Gap 3 mmol/L; Blood Urea Nitrogen 11 mg/dL (9-20); Carbon Dioxide 26 mmol/L (22-30); Chloride 106 mmol/L (98-107); Glucose 110 mg/dL (74-99); Potassium 4.5 mmol/L (3.5-5.1); Sodium 135 mmol/L (137-145)
[2018-11-18 07:54] LABS: African American GFR (CKD) >90 (>60 ml/min/1.73 sqM); Calcium 8.6 mg/dL (8.4-10.2)
[2018-11-18] MEDS: FAMOTIDINE 20 MG TAB PO SCH ×2 (09:46→21:01)
[2018-11-18] MEDS: LOSARTAN 50 MG TAB PO SCH (09:46)
[2018-11-18] MEDS: ALVIMOPAN 12 MG CAPSULE PO SCH ×2 (09:46→21:01)
[2018-11-18] MEDS: ALLOPURINOL 300 MG TAB PO SCH (09:46)
[2018-11-18] MEDS: HEPARIN SODIUM,PORCINE 5,000 UNIT/ML 1 ML VIAL SQ SCH ×2 (09:53→21:01)
--- NOTE | 2018-11-18 11:00 | P.PN ---
Progress Note - Text Progress Note Date: 11/18/18 He had been doing pretty well with the epidural. He is postop day 3 catheter day #4 from a left hemicolectomy with Dr. Broderick. Catheter to be discontinued today. Discussed with nurse.
--- NOTE | 2018-11-18 11:06 | P.PN ---
Subjective Progress Note Date: 11/18/18 Principal diagnosis: Colon mass Patient doing well today. Pain is well-controlled. White blood cell count 11.5. No flatus or bowel movement thus far. No nausea or vomiting. Objective - Vital Signs Vital signs: Vital Signs Temp 98.4 F 11/18/18 08:24 Pulse 76 11/18/18 08:24 Resp 16 11/18/18 08:24 BP 149/68 11/18/18 08:24 Pulse Ox 97 11/18/18 08:24 Intake & Output 11/17/18 11/18/18 11/18/18 18:59 06:59 18:59 Intake Total 500 240 Output Total 4400 1500 Balance -3900 -1260 Intake: Oral 500 240 Output: Urine 4400 1500 Other: Voiding Method Indwelling Catheter Indwelling Catheter - Exam Abdomen: Soft, nondistended, mild distention, mild incisional tenderness - Labs CBC & Chem 7: 11/18/18 06:14 11/18/18 06:14 Labs: Abnormal Lab Results - Last 24 Hours (Table) 11/18/18 11/18/18 Range/Units 06:14 06:14 WBC 11.5 H (3.8-10.6) k/uL RBC 3.13 L (4.30-5.90) m/uL Hgb 10.8 L (13.0-17.5) gm/dL Hct 31.4 L (39.0-53.0) % MCV 100.2 H (80.0-100.0) fL RDW 15.9 H (11.5-15.5) % Plt Count 112 L (150-450) k/uL Sodium 135 L (137-145) mmol/L Glucose 110 H (74-99) mg/dL Assessment and Plan (1) Tubulovillous adenoma Narrative/Plan: Patient doing well postoperatively. Continue liquid diet. Ambulate. Remove epidural and Grover catheter today. Current Visit: Yes Status: Acute Code(s): D36.9 - BENIGN NEOPLASM, UNSPECIFIED SITE SNOMED Code(s): 129936221
[2018-11-18] MEDS: ALBUTEROL NEBULIZED 2.5 MG/3 ML INHALATION PRN (14:04)
[2018-11-18] MEDS: D5-0.9% NACL WITH KCL 20 MEQ/L 1,000 ML IV SCH ×2 (14:09→21:01)
[2018-11-18] MEDS: ACETAMINOPHEN TAB 325 MG TAB PO PRN (15:25)
[2018-11-18] MEDS: HYDROmorphone 1 MG/ML 1 ML SYRINGE IVP PRN (17:08)
--- NOTE | 2018-11-18 19:35 | P.PN ---
Subjective Progress Note Date: 11/18/18 Principal diagnosis: Status post open left colectomy for tubular adenoma with focal high-grade dysplasia Mr. mohan is a 78-year-old male with a past medical history of coronary artery disease, hypertension, hyperlipidemia, hypothyroidism status post CABG and stent placement admitted to the hospital for laparoscopic left colectomy for tubular adenoma with focal high-grade dysplasia on colonoscopy. The patient however ended up getting an open laparoscopic cholectomy with colocolic stenosis. Patient is postoperative day 3 today. Patient denies having any abdominal pain. He has been getting up and walking around. Patient is on clear liquid diet. He denies having any nausea or vomiting. He is having burps. He is not passing flatus. Patient denies having any chest pain or difficulty in breathing. Active Medications Acetaminophen (Tylenol Tab) 650 mg PO Q6HR PRN PRN Reason: Fever and/ or Pain Last Admin: 11/18/18 15:25 Dose: 650 mg Documented by: Albuterol Sulfate (Ventolin Nebulized) 2.5 mg INHALATION RT-TID PRN PRN Reason: Shortness Of Breath Or Wheezing Last Admin: 11/18/18 14:04 Dose: 2.5 mg Documented by: Allopurinol (Zyloprim) 300 mg PO DAILY [facility] Last Admin: 11/18/18 09:46 Dose: 300 mg Documented by: Alvimopan (Entereg) 12 mg PO BID [facility] Stop: 11/22/18 21:01 Last Admin: 11/18/18 09:46 Dose: 12 mg Documented by: Atorvastatin Calcium (Lipitor) 10 mg PO HS [facility] Last Admin: 11/17/18 21:22 Dose: 10 mg Documented by: Diphenhydramine HCl (Benadryl) 25 mg PO Q6HR PRN PRN Reason: Itching Famotidine (Pepcid) 20 mg PO BID [facility] Last Admin: 11/18/18 09:46 Dose: 20 mg Documented by: Fluticasone Propionate (Flonase Nasal [place]) 2 spray EA NOSTRIL DAILY PRN PRN Reason: Allergy Symptoms Heparin Sodium (Porcine) (Heparin) 5,000 unit SQ Q12HR [facility] Last Admin: 11/18/18 09:53 Dose: Not Given Documented by: Hydromorphone HCl (Dilaudid) 1 mg IVP Q3HR PRN PRN Reason: Severe Pain Last Admin: 11/18/18 17:08 Dose: 1 mg Documented by: Lactated Ringer's (Lactated Ringers) 1,000 mls @ 20 mls/hr IV .Q24H [facility] Last Admin: 11/18/18 03:18 Dose: Not Given Documented by: Ropivacaine 400 mg/Hydromorphone HCl 5 mg/ Sodium Chloride 250 mls @ 0 mls/hr EPIDURAL .Q0M PRN; Protocol PRN Reason: Pain Control Last Infusion: 11/16/18 08:00 Dose: 3 mls/hr Documented by: Potassium Chloride/Dextrose/Sod Cl (D5%-Ns-Kcl 20 Meq/L Iv Solution) 1,000 mls @ 75 mls/hr IV .Q49H40S [facility] Last Admin: 11/18/18 14:09 Dose: Not Given Documented by: Levothyroxine Sodium (Synthroid) 125 mcg PO DAILY@0630 [facility] Last Admin: 11/18/18 05:09 Dose: 125 mcg Documented by: Lidocaine HCl (.Xylocaine 1% Inj (10mg/Ml) For Iv Start) 0.1 ml INTRADERMA PER PROTOCOL PRN PRN Reason: IV Start Last Admin: 11/15/18 06:28 Dose: 0.1 ml Documented by: Losartan Potassium (Cozaar) 50 mg PO DAILY [facility] Last Admin: 11/18/18 09:46 Dose: 50 mg Documented by: Metoprolol Succinate (Toprol Xl) 50 mg PO HS [facility] Last Admin: 11/17/18 21:22 Dose: 50 mg Documented by: Nalbuphine HCl (Nubain) 2.5 mg IV Q4HR PRN PRN Reason: Itching Naloxone HCl (Narcan) 0.2 mg IV Q2M PRN PRN Reason: Opioid Reversal Ondansetron HCl (Zofran) 4 mg IVP Q4HR PRN PRN Reason: Nausea And Vomiting Last Admin: 11/16/18 12:08 Dose: 4 mg Documented by: Objective - Vital Signs Vital signs: Vital Signs Temp 98.5 F 11/18/18 14:07 Pulse 80 11/18/18 14:22 Resp 18 11/18/18 14:07 BP 152/67 11/18/18 14:07 Pulse Ox 97 11/18/18 14:07 Intake & Output 11/18/18 11/18/18 11/19/18 06:59 18:59 06:59 Intake Total 240 500 Output Total 1500 600 Balance -1260 -100 Intake: Oral 240 500 Output: Urine 1500 600 Uretheral (Grover) 600 Other: Voiding Method Indwelling Catheter Indwelling Catheter - Exam GENERAL: The patient is alert and oriented x3, not in any acute distress. Well developed, well nourished. HEENT: Pupils are round and equally reacting to light. EOMI. No scleral icterus. No conjunctival pallor. Normocephalic, atraumatic. No pharyngeal erythema. No thyromegaly. CARDIOVASCULAR: S1 and S2 present. No murmurs, rubs, or gallops. PULMONARY: Chest is clear to auscultation, no wheezing or crackles. ABDOMEN: Soft, nontender, nondistended. Bowel sounds could not be appreciated Vertical wound in the midline, with dressing in place, right side puncture wound for laparoscopic with roman in place. MUSCULOSKELETAL: No joint swelling or deformity. EXTREMITIES: No cyanosis, clubbing, or pedal edema. NEUROLOGICAL: Gross neurological examination did not reveal any focal deficits. SKIN: No rashes. no petechiae. - Labs CBC & Chem 7: 11/18/18 06:14 11/18/18 06:14 Labs: Abnormal Lab Results - Last 24 Hours (Table) 11/18/18 11/18/18 Range/Units 06:14 06:14 WBC 11.5 H (3.8-10.6) k/uL RBC 3.13 L (4.30-5.90) m/uL Hgb 10.8 L (13.0-17.5) gm/dL Hct 31.4 L (39.0-53.0) % MCV 100.2 H (80.0-100.0) fL RDW 15.9 H (11.5-15.5) % Plt Count 112 L (150-450) k/uL Sodium 135 L (137-145) mmol/L Glucose 110 H (74-99) mg/dL Assessment and Plan Assessment: Assessment: Status post open left colectomy for tubular adenoma with focal high-grade dysplasia history of coronary artery disease status post CABG and stent placement in Hypertension Hyperlipidemia Hypothyroidism PLAN : Patient's vitals and labs within normal limits. His hemoglobin has been stable around 10. Patient is encouraged to continue with incentive spirometry. Pain management and DVT prophylaxis as per primary care team. Continue with the rest of his current medication regimen. Further admonitions to follow depending on the progress of the patient.
--- NOTE | 2018-11-18 19:37 | P.PN ---
Subjective Progress Note Date: 11/17/18 Principal diagnosis: Status post open left colectomy for tubular adenoma with focal high-grade dysplasia Mr. Goldstein is a 78-year-old male with a past medical history of coronary artery disease, hypertension, hyperlipidemia, hypothyroidism status post CABG and stent placement admitted to the hospital for laparoscopic left colectomy for tubular adenoma with focal high-grade dysplasia on colonoscopy. The patient however ended up getting an open laparoscopic cholectomy with colocolic stenosis. On 11/17/2018- he is postop day # 2. patient is comfortably lying in bed. His is at the bedside. He does not have any active complaints. He denies having any abdominal pain nausea or vomiting. Patient is still not having a bowel movement. He denies passing flatus. No chest pain or difficulty in breathing. No swelling of his lower extremity is. No dysuria or hematuria. Active Medications Albuterol Sulfate (Ventolin Nebulized) 2.5 mg INHALATION RT-TID PRN PRN Reason: Shortness Of Breath Or Wheezing Last Admin: 11/17/18 20:41 Dose: 2.5 mg Documented by: Allopurinol (Zyloprim) 300 mg PO DAILY [facility] Last Admin: 11/17/18 09:02 Dose: 300 mg Documented by: Alvimopan (Entereg) 12 mg PO BID [facility] Stop: 11/22/18 21:01 Last Admin: 11/17/18 21:22 Dose: 12 mg Documented by: Atorvastatin Calcium (Lipitor) 10 mg PO HS [facility] Last Admin: 11/17/18 21:22 Dose: 10 mg Documented by: Diphenhydramine HCl (Benadryl) 25 mg PO Q6HR PRN PRN Reason: Itching Famotidine (Pepcid) 20 mg PO BID [facility] Last Admin: 11/17/18 21:22 Dose: 20 mg Documented by: Fluticasone Propionate (Flonase Nasal [place]) 2 spray EA NOSTRIL DAILY PRN PRN Reason: Allergy Symptoms Heparin Sodium (Porcine) (Heparin) 5,000 unit SQ Q12HR [facility] Last Admin: 11/17/18 21:22 Dose: 5,000 unit Documented by: Hydromorphone HCl (Dilaudid) 1 mg IVP Q3HR PRN PRN Reason: Severe Pain Lactated Ringer's (Lactated Ringers) 1,000 mls @ 20 mls/hr IV .Q24H [facility] Last Admin: 11/17/18 05:44 Dose: Not Given Documented by: Ropivacaine 400 mg/Hydromorphone HCl 5 mg/ Sodium Chloride 250 mls @ 0 mls/hr EPIDURAL .Q0M PRN; Protocol PRN Reason: Pain Control Last Infusion: 11/16/18 08:00 Dose: 3 mls/hr Documented by: Potassium Chloride/Dextrose/Sod Cl (D5%-Ns-Kcl 20 Meq/L Iv Solution) 1,000 mls @ 75 mls/hr IV .[id number] [facility] Last Admin: 11/17/18 21:24 Dose: 75 mls/hr Documented by: Levothyroxine Sodium (Synthroid) 125 mcg PO DAILY@0630 [facility] Last Admin: 11/17/18 05:48 Dose: 125 mcg Documented by: Lidocaine HCl (.Xylocaine 1% Inj (10mg/Ml) For Iv Start) 0.1 ml INTRADERMA PER PROTOCOL PRN PRN Reason: IV Start Last Admin: 11/15/18 06:28 Dose: 0.1 ml Documented by: Losartan Potassium (Cozaar) 50 mg PO DAILY [facility] Last Admin: 11/17/18 09:02 Dose: 50 mg Documented by: Metoprolol Succinate (Toprol Xl) 50 mg PO [facility] Last Admin: 11/17/18 21:22 Dose: 50 mg Documented by: Nalbuphine HCl (Nubain) 2.5 mg IV Q4HR PRN PRN Reason: Itching Naloxone HCl (Narcan) 0.2 mg IV Q2M PRN PRN Reason: Opioid Reversal Ondansetron HCl (Zofran) 4 mg IVP Q4HR PRN PRN Reason: Nausea And Vomiting Last Admin: 11/16/18 12:08 Dose: 4 mg Documented by: Objective - Vital Signs Vital signs: Vital Signs Temp 98.4 F 11/17/18 15:00 Pulse 72 11/17/18 16:51 Resp 16 11/17/18 15:00 BP 135/69 11/17/18 15:00 Pulse Ox 97 11/17/18 15:00 Intake & Output 11/17/18 11/17/18 11/18/18 06:59 18:59 06:59 Intake Total 950 500 Output Total 4400 Balance 950 -3900 Intake: Intake, IV Titration 900 Amount D5-0.9% NaCl with KCl 20 900 Meq/l 1,000 ml @ 75 mls/ hr IV .[id number] [facility] Rx#: [id number] Oral 50 500 Output: Urine 4400 Other: Voiding Method Indwelling Catheter Indwelling Catheter # Voids 2 - Exam GENERAL: The patient is alert and oriented x3, not in any acute distress. Well developed, well nourished. HEENT: Pupils are round and equally reacting to light. EOMI. No scleral icterus. No conjunctival pallor. Normocephalic, atraumatic. No pharyngeal erythema. No thyromegaly. CARDIOVASCULAR: S1 and S2 present. No murmurs, rubs, or gallops. PULMONARY: Chest is clear to auscultation, no wheezing or crackles. ABDOMEN: Soft, nontender, nondistended. Bowel sounds could not be appreciated . Vertical wound in the midline, with dressing in place. MUSCULOSKELETAL: No joint swelling or deformity. EXTREMITIES: No cyanosis, clubbing, or pedal edema. NEUROLOGICAL: Gross neurological examination did not reveal any focal deficits. SKIN: No rashes. no petechiae. - Labs CBC & Chem 7: 11/18/18 06:14 11/18/18 06:14 Labs: Abnormal Lab Results - Last 24 Hours (Table) 11/17/18 11/17/18 Range/Units 06:50 06:50 WBC 14.4 H (3.8-10.6) k/uL RBC 3.30 L (4.30-5.90) m/uL Hgb 11.3 L (13.0-17.5) gm/dL Hct 34.0 L (39.0-53.0) % MCV 103.0 H (80.0-100.0) fL Plt Count 147 L (150-450) k/uL Neutrophils # 10.1 H (1.3-7.7) k/uL Monocytes # 1.5 H (0-1.0) k/uL Sodium 135 L (137-145) mmol/L Carbon Dioxide 21 L (22-30) mmol/L Glucose 119 H (74-99) mg/dL Assessment and Plan Assessment: Assessment: Status post open left colectomy for tubular adenoma with focal high-grade dysplasia history of coronary artery disease status post CABG and stent placement in Hypertension Hyperlipidemia Hypothyroidism PLAN : Patient's vitals and labs within normal limits. His hemoglobin has been stable around 11 . Patient is encouraged to continue with incentive spirometry. Pain management and DVT prophylaxis as per primary care team. Continue with the rest of his current medication regimen. Further recommendations to follow depending on the progress of the patient.
[2018-11-18] MEDS: METOPROLOL SUCCINATE (ER) 50 MG TAB.ER.24H PO SCH (21:01)
[2018-11-18] MEDS: ATORVASTATIN 10 MG TAB PO SCH (21:01)
[2018-11-19] MEDS: LACTATED RINGERS 1,000 ML IV SCH (04:15)
[2018-11-19] MEDS: LEVOTHYROXINE 125 MCG TAB PO SCH (05:14)
[2018-11-19] MEDS: ACETAMINOPHEN TAB 325 MG TAB PO PRN (05:14)
[2018-11-19] MEDS: HYDROmorphone 1 MG/ML 1 ML SYRINGE IVP PRN ×4 (06:49→20:18)
--- NOTE | 2018-11-19 07:44 | P.PN ---
Subjective Progress Note Date: 11/19/18 Principal diagnosis: POD #4 for colonic polyp This is a continue present on a 70-year-old white male with history of colon polyps status post partial colectomy. No flatus as of yet. There is element of delirium which is suspect is related to anesthesia. Element of hypertension is noted. The patient seems quite lucid now this morning and can answer questions appropriately. Objective - Vital Signs Vital signs: Vital Signs Temp 98.0 F 11/19/18 06:58 Pulse 67 11/19/18 06:58 Resp 17 11/19/18 06:58 BP 156/72 11/19/18 06:58 Pulse Ox 94 L 11/19/18 06:58 Intake & Output 11/18/18 11/19/18 11/19/18 18:59 06:59 18:59 Intake Total 500 480 Output Total 600 600 Balance -100 -120 Intake: Oral 500 480 Output: Urine 600 600 Uretheral (Grover) 600 Other: Voiding Method Indwelling Catheter Toilet # Voids 1 - Constitutional General appearance: Present: average body habitus, cooperative, no acute distress - EENT Eyes: Absent: abnormal pupil - Respiratory Respiratory: bilateral: CTA - Cardiovascular Rhythm: regular Heart sounds: normal: S1, S2 Abnormal Heart Sounds: Absent: S3 Gallop - Gastrointestinal General gastrointestinal: Present: absent bowel sounds - Integumentary Integumentary: Absent: cellulitis - Neurologic Neurologic: Present: CNII-XII intact - Labs CBC & Chem 7: 11/18/18 06:14 11/18/18 06:14 Labs: Abnormal Lab Results - Last 24 Hours (Table) 11/18/18 Range/Units 06:14 Sodium 135 L (137-145) mmol/L Glucose 110 H (74-99) mg/dL Assessment and Plan (1) Hyperlipidemia Current Visit: Yes Status: Acute Code(s): E78.5 - HYPERLIPIDEMIA, UNSPECIFIED SNOMED Code(s): 46799272 (2) History of colectomy Current Visit: Yes Status: Acute Code(s): Z90.49 - ACQUIRED ABSENCE OF OTHER SPECIFIED PARTS OF DIGESTIVE TRACT SNOMED Code(s): 167477649 (3) Hypertension Current Visit: Yes Status: Acute Code(s): I10 - ESSENTIAL (PRIMARY) HYPERTENSION SNOMED Code(s): 81458484 (4) Gout Current Visit: Yes Status: Acute Code(s): M10.9 - GOUT, UNSPECIFIED SNOMED Code(s): 32785688 (5) Tubulovillous adenoma Current Visit: Yes Status: Acute Code(s): D36.9 - BENIGN NEOPLASM, UNSPECIFIED SITE SNOMED Code(s): 974555914 Plan: Reconcile medications. Restart antihypertensive medications. Diet to be advanced as per surgery. Check CBC and CMP in a.m. Watch blood pressure closely. See orders otherwise. Time with Patient: Greater than 30
[2018-11-19 07:54] LABS: Basophils # (A) 0.1 k/uL (0-0.2); Basophils % (A) 1 %; Eosinophils # (A) 0.2 k/uL (0-0.7); Eosinophils % (A) 2 %; HCT 33.2 % (39.0-53.0); HGB 11.4 gm/dL (13.0-17.5); Lymphocytes # (A) 1.9 k/uL (1.0-4.8); Lymphocytes % (A) 18 %; MCH 34.2 pg (25.0-35.0); MCHC 34.2 g/dL (31.0-37.0); MCV 99.9 fL (80.0-100.0); Macrocytosis Slight; Mean Platelet Volume 8.1; Monocytes # (A) 0.8 k/uL (0-1.0); Monocytes % (A) 8 %; Neutrophils # (A) 7.1 k/uL (1.3-7.7); Neutrophils % (A) 69 %; Platelet Count 150 k/uL (150-450); RBC 3.32 m/uL (4.30-5.90); RDW 15.6 % (11.5-15.5); WBC 10.3 k/uL (3.8-10.6)
[2018-11-19 08:05] LABS: African American GFR (CKD) >90 (>60 ml/min/1.73 sqM); Anion Gap 9 mmol/L; Blood Urea Nitrogen 10 mg/dL (9-20); Calcium 8.9 mg/dL (8.4-10.2); Carbon Dioxide 24 mmol/L (22-30); Chloride 105 mmol/L (98-107); Glucose 133 mg/dL (74-99); Potassium 4.1 mmol/L (3.5-5.1); Sodium 138 mmol/L (137-145)
[2018-11-19] MEDS: ALVIMOPAN 12 MG CAPSULE PO SCH ×2 (08:05→20:19)
[2018-11-19] MEDS: HEPARIN SODIUM,PORCINE 5,000 UNIT/ML 1 ML VIAL SQ SCH ×2 (08:05→20:19)
[2018-11-19] MEDS: LOSARTAN 50 MG TAB PO SCH (08:05)
[2018-11-19] MEDS: FAMOTIDINE 20 MG TAB PO SCH ×2 (08:05→20:19)
[2018-11-19] MEDS: ALLOPURINOL 300 MG TAB PO SCH (08:05)
--- NOTE | 2018-11-19 09:53 | CDI ---
Documentation Clarification Form Date: 11/19/2018 09:34am From: Arline Joseph RN CCDS Admit Date: 11/15/2018 5:44:00 AM Patient Name: Andrea Goldstein Visit Number: [id number] Discharge Date: ATTENTION: The Clinical Documentation Specialists (CDI) and [facility] Coding Staff appreciate your assistance in clarifying documentation. Please respond to the clarification below the line at the bottom and electronically sign. The CDI & [facility] Coding staff will review the response and follow-up if needed. Please note: Queries are made part of the Legal Health Record. If you have any questions, please contact the author of this message via ITS. Dr. Moe Ward Conflicting Documentation has been found in the medical record Delirium is documented in your Progress Note 11/19/2018 Confusion is documented in Nursing Notes 2018 History/Risk Factors: 78-year-old male presents To [facility] for elective surgery for colon polyps. Medical History of CAD, Basal cell skin Cancer; Hyperlipidemia; HTN; Thyroid Clinical Indicators: Per Progress Note There is element of delirium which is suspect is related to anesthesia Per Nursing Notes Patient blood pressure dropped to 62/51 pulse 88, Temp 98.4, Resp 16, Pt. confused, A & O x1 hard to arouse, Epidural Stopped and anesthesiologist called. Other Clinical Indicators: Treatment: 0.9ns 500cc bolus, hold epidural for four hours In your professional opinion, what is the most clinically appropriate diagnosis for this patient? * Toxic Encephalopathy secondary to anesthesia an expected outcome * Toxic Encephalopathy secondary to anesthesia an unexpected outcome * Toxic Encephalopathy secondary to epidural an expected outcome * Toxic Encephalopathy secondary to epidural an unexpected outcome * Other, please specify * Unable to determine * * toxic encephalopathy secondary to anesthesia Which is an unexpected outcome (Last Revision: May 2017) MTDD
[2018-11-19] MEDS: D5-0.9% NACL WITH KCL 20 MEQ/L 1,000 ML IV SCH (12:04)
[2018-11-19] MEDS ORDERED: BISACODYL 10 MG SUPP RECTAL STA (12:17)
[2018-11-19] MEDS ORDERED: METOCLOPRAMIDE 5 MG/ML 2 ML VIAL IVP STA (12:25)
--- NOTE | 2018-11-19 12:33 | P.PN ---
Subjective Progress Note Date: 11/19/18 CHIEF COMPLAINT: tubulovillous adenoma HISTORY OF PRESENT ILLNESS: Patient is S/P left colectomy. POD #4. Patient examined this morning. He is sitting in the chair. Epidural and stewart removed yesterday. Pain controlled on current regimen. voiding without difficulty. Denies passing flatus. He reports belching. Tolerating clear liquid diet. WBC 10.3. Hemoglobin 11.4. PHYSICAL EXAM: VITAL SIGNS: Reviewed. GENERAL: Well-developed in no acute distress. HEENT: No sclera icterus. Extraocular movements grossly intact. Moist buccal mucosa. Head is atraumatic, normocephalic. ABDOMEN: Soft. Mild distention. Appropriate surgical tenderness. Dressing intact. NEUROLOGIC: Alert and oriented. Cranial nerves II through XII grossly intact. ASSESSMENT: 1. Tubulovillous adenoma, s/p left colectomy PLAN: 1. Continue clear liquid diet. Await bowel function. Continue Entereg. Dulcolax suppository 1. Reglan 10 mg IVP 1. 2. Pain control 3. Incentive spirometry 4. Activity as tolerated Nurse practitioner note has been reviewed by physician. Signing provider agrees with the documented findings, assessment, and plan of care. Objective - Vital Signs Vital signs: Vital Signs Temp 98.0 F 11/19/18 06:58 Pulse 67 11/19/18 06:58 Resp 17 11/19/18 06:58 BP 156/72 11/19/18 06:58 Pulse Ox 94 L 11/19/18 06:58 Intake & Output 11/18/18 11/19/18 11/19/18 18:59 06:59 18:59 Intake Total 500 480 Output Total 600 600 Balance -100 -120 Weight 99.79 kg Intake: Oral 500 480 Output: Urine 600 600 Uretheral (Stewart) 600 Other: Voiding Method Indwelling Catheter Toilet Toilet # Voids 1 1 - Labs CBC & Chem 7: 11/19/18 07:12 11/19/18 07:12 Labs: Abnormal Lab Results - Last 24 Hours (Table) 11/19/18 11/19/18 Range/Units 07:12 07:12 RBC 3.32 L (4.30-5.90) m/uL Hgb 11.4 L (13.0-17.5) gm/dL Hct 33.2 L (39.0-53.0) % RDW 15.6 H (11.5-15.5) % Glucose 133 H (74-99) mg/dL
[2018-11-19] MEDS: ALBUTEROL NEBULIZED 2.5 MG/3 ML INHALATION PRN (19:45)
[2018-11-19] MEDS: METOPROLOL SUCCINATE (ER) 50 MG TAB.ER.24H PO SCH (20:19)
[2018-11-19] MEDS: ATORVASTATIN 10 MG TAB PO SCH (20:19)
[2018-11-20] MEDS: HYDROmorphone 1 MG/ML 1 ML SYRINGE IVP PRN ×2 (02:14→13:37)
[2018-11-20] MEDS: LEVOTHYROXINE 125 MCG TAB PO SCH (05:26)
[2018-11-20] MEDS: D5-0.9% NACL WITH KCL 20 MEQ/L 1,000 ML IV SCH ×2 (05:26→16:01)
[2018-11-20] MEDS: LACTATED RINGERS 1,000 ML IV SCH (06:23)
[2018-11-20 07:31] LABS: HCT 30.4 % (39.0-53.0); HGB 10.4 gm/dL (13.0-17.5); MCH 34.3 pg (25.0-35.0); MCHC 34.2 g/dL (31.0-37.0); MCV 100.2 fL (80.0-100.0); Macrocytosis Slight; Mean Platelet Volume 7.8; Platelet Count 140 k/uL (150-450); RBC 3.04 m/uL (4.30-5.90); RDW 14.4 % (11.5-15.5); WBC 8.9 k/uL (3.8-10.6)
[2018-11-20] MEDS: FAMOTIDINE 20 MG TAB PO SCH ×2 (07:35→20:04)
[2018-11-20] MEDS: LOSARTAN 50 MG TAB PO SCH (07:35)
[2018-11-20] MEDS: HEPARIN SODIUM,PORCINE 5,000 UNIT/ML 1 ML VIAL SQ SCH ×2 (07:36→20:03)
[2018-11-20] MEDS: ALLOPURINOL 300 MG TAB PO SCH (07:36)
[2018-11-20] MEDS: ALVIMOPAN 12 MG CAPSULE PO SCH (07:36)
[2018-11-20 07:54] LABS: ALT 31 U/L (21-72); AST 28 U/L (17-59); African American GFR (CKD) >90 (>60 ml/min/1.73 sqM); Albumin 2.7 g/dL (3.5-5.0); Alkaline Phosphatase 101 U/L (38-126); Anion Gap 8 mmol/L; Blood Urea Nitrogen 8 mg/dL (9-20); Calcium 8.3 mg/dL (8.4-10.2); Carbon Dioxide 25 mmol/L (22-30); Chloride 104 mmol/L (98-107); Glucose 115 mg/dL (74-99); Potassium 3.5 mmol/L (3.5-5.1); Sodium 137 mmol/L (137-145); Total Bilirubin 0.8 mg/dL (0.2-1.3); Total Protein 5.4 g/dL (6.3-8.2)
[2018-11-20] MEDS: METOCLOPRAMIDE 5 MG/ML 2 ML VIAL IVP SCH ×3 (11:11→23:10)
--- NOTE | 2018-11-20 13:00 | P.PN ---
Subjective Progress Note Date: 11/20/18 CHIEF COMPLAINT: tubulovillous adenoma HISTORY OF PRESENT ILLNESS: Patient is S/P left colectomy. POD #5. Patient examined this morning. He is sitting in the chair. Pain controlled on current regimen. Voiding without difficulty. Denies passing flatus. He reports belching, but less than yesterday. Tolerating clear liquid diet. PHYSICAL EXAM: VITAL SIGNS: Reviewed. GENERAL: Well-developed in no acute distress. HEENT: No sclera icterus. Extraocular movements grossly intact. Moist buccal mucosa. Head is atraumatic, normocephalic. ABDOMEN: Soft. Mild distention. Appropriate surgical tenderness. Dressing intact. NEUROLOGIC: Alert and oriented. Cranial nerves II through XII grossly intact. ASSESSMENT: 1. Tubulovillous adenoma, s/p left colectomy PLAN: 1. Continue clear liquid diet. Await bowel function. Continue Entereg. Dulcolax suppository 1 ordered yesterday but patient refused. He is agreeable to taking it today. Will add Reglan 10mg IVP Q6 hours scheduled 2. Pain control 3. Incentive spirometry 4. Activity as tolerated Nurse practitioner note has been reviewed by physician. Signing provider agrees with the documented findings, assessment, and plan of care. Objective - Vital Signs Vital signs: Vital Signs Temp 98.6 F 11/20/18 07:16 Pulse 65 11/20/18 10:15 Resp 18 11/20/18 07:16 BP 162/73 11/20/18 10:15 Pulse Ox 95 11/20/18 07:16 Intake & Output 11/19/18 11/20/18 11/20/18 18:59 06:59 18:59 Intake Total 950 Balance 950 Weight 99.79 kg Intake: Intake, IV Titration 750 Amount D5-0.9% NaCl with KCl 20 750 Meq/l 1,000 ml @ 75 mls/ hr IV .[id number] [facility] Rx#: [id number] Oral 200 Other: Voiding Method Toilet Toilet # Voids 1 1 1 - Labs CBC & Chem 7: 11/20/18 06:38 11/20/18 06:38 Labs: Abnormal Lab Results - Last 24 Hours (Table) 11/20/18 11/20/18 Range/Units 06:38 06:38 RBC 3.04 L (4.30-5.90) m/uL Hgb 10.4 L (13.0-17.5) gm/dL Hct 30.4 L (39.0-53.0) % MCV 100.2 H (80.0-100.0) fL Plt Count 140 L (150-450) k/uL BUN 8 L (9-20) mg/dL Glucose 115 H (74-99) mg/dL Calcium 8.3 L (8.4-10.2) mg/dL Total Protein 5.4 L (6.3-8.2) g/dL Albumin 2.7 L (3.5-5.0) g/dL
[2018-11-20] MEDS: METOPROLOL SUCCINATE (ER) 50 MG TAB.ER.24H PO SCH (20:03)
[2018-11-20] MEDS: ATORVASTATIN 10 MG TAB PO SCH (20:04)
--- NOTE | 2018-11-20 22:46 | P.PN ---
Subjective Principal diagnosis: POD #4 for colonic polyp This is a continue present on a 78-year-old white male with history of colon polyps status post partial colectomy. No flatus as of yet. There is element of delirium which is suspect is related to anesthesia. Element of hypertension is noted. The patient seems quite lucid now this morning and can answer questions appropriately. Most likely the patient had an element of toxic and valvulopathy after anesthesia with which was an unexpected outcome. Objective - Vital Signs Vital signs: Vital Signs Temp 98.7 F 11/20/18 19:21 Pulse 80 11/20/18 19:21 Resp 18 11/20/18 19:21 BP 188/78 11/20/18 19:21 Pulse Ox 96 11/20/18 19:21 Intake & Output 11/20/18 11/20/18 11/21/18 06:59 18:59 06:59 Intake Total 950 Balance 950 Intake: Intake, IV Titration 750 Amount D5-0.9% NaCl with KCl 20 750 Meq/l 1,000 ml @ 75 mls/ hr IV .[id number] [facility] Rx#: [id number] Oral 200 Other: Voiding Method Toilet # Voids 1 1 2 # Bowel Movements 1 - Constitutional General appearance: Present: average body habitus - EENT Eyes: Absent: abnormal pupil - Neck Neck: Absent: lymphadenopathy - Respiratory Respiratory: bilateral: CTA - Cardiovascular Rhythm: regular Heart sounds: normal: S1, S2 Abnormal Heart Sounds: Absent: S3 Gallop - Gastrointestinal General gastrointestinal: Present: absent bowel sounds, soft. Absent: tenderness - Psychiatric Psychiatric: Present: A&O x's 3, appropriate affect - Labs CBC & Chem 7: 11/20/18 06:38 11/20/18 06:38 Labs: Abnormal Lab Results - Last 24 Hours (Table) 11/20/18 11/20/18 Range/Units 06:38 06:38 RBC 3.04 L (4.30-5.90) m/uL Hgb 10.4 L (13.0-17.5) gm/dL Hct 30.4 L (39.0-53.0) % MCV 100.2 H (80.0-100.0) fL Plt Count 140 L (150-450) k/uL BUN 8 L (9-20) mg/dL Glucose 115 H (74-99) mg/dL Calcium 8.3 L (8.4-10.2) mg/dL Total Protein 5.4 L (6.3-8.2) g/dL Albumin 2.7 L (3.5-5.0) g/dL Assessment and Plan (1) Hyperlipidemia Current Visit: Yes Status: Acute Code(s): E78.5 - HYPERLIPIDEMIA, UNSPECIFIED SNOMED Code(s): 37243342 (2) History of colectomy Current Visit: Yes Status: Acute Code(s): Z90.49 - ACQUIRED ABSENCE OF OTHER SPECIFIED PARTS OF DIGESTIVE TRACT SNOMED Code(s): 606209208 (3) Hypertension Current Visit: Yes Status: Acute Code(s): I10 - ESSENTIAL (PRIMARY) HYPERTENSION SNOMED Code(s): 94631526 (4) Gout Current Visit: Yes Status: Acute Code(s): M10.9 - GOUT, UNSPECIFIED SNOMED Code(s): 18203830 (5) Tubulovillous adenoma Current Visit: Yes Status: Acute Code(s): D36.9 - BENIGN NEOPLASM, UNSPEC IFIED SITE SNOMED Code(s): 073655919 Plan: Reconcile medications. Restart antihypertensive medications. Diet to be advanced as per surgery. Check CBC and CMP in a.m. Watch blood pressure closely. See orders otherwise. Time with Patient: Less than 30
[2018-11-21] MEDS: HYDROmorphone 1 MG/ML 1 ML SYRINGE IVP PRN ×2 (02:22→07:07)
[2018-11-21] MEDS: LACTATED RINGERS 1,000 ML IV SCH (03:40)
[2018-11-21] MEDS: D5-0.9% NACL WITH KCL 20 MEQ/L 1,000 ML IV SCH ×2 (05:53→20:26)
[2018-11-21] MEDS: METOCLOPRAMIDE 5 MG/ML 2 ML VIAL IVP SCH ×3 (05:53→17:24)
[2018-11-21] MEDS: LEVOTHYROXINE 125 MCG TAB PO SCH (05:53)
[2018-11-21] MEDS: LOSARTAN 50 MG TAB PO SCH (07:08)
[2018-11-21] MEDS: HEPARIN SODIUM,PORCINE 5,000 UNIT/ML 1 ML VIAL SQ SCH ×2 (07:08→20:26)
[2018-11-21] MEDS: FAMOTIDINE 20 MG TAB PO SCH ×2 (07:08→20:26)
[2018-11-21] MEDS: ALLOPURINOL 300 MG TAB PO SCH (07:09)
--- NOTE | 2018-11-21 09:51 | P.PN ---
Subjective Principal diagnosis: POD #4 for colonic polyp This is a continue present on a 78-year-old white male with history of colon polyps status post partial colectomy. No flatus as of yet. There is element of delirium which is suspect is related to anesthesia. Element of hypertension is noted. The patient seems quite lucid now this morning and can answer questions appropriately. Most likely the patient had an element of toxic and valvulopathy after anesthesia with which was an unexpected outcome. 11/21 Flatus now present. Increase dietary intake per surgery Objective - Vital Signs Vital signs: Vital Signs Temp 98.3 F 11/21/18 07:00 Pulse 68 11/21/18 07:00 Resp 16 11/21/18 07:00 BP 162/71 11/21/18 07:00 Pulse Ox 94 L 11/21/18 07:00 Intake & Output 11/20/18 11/21/18 11/21/18 18:59 06:59 18:59 Other: Voiding Method Toilet # Voids 1 2 # Bowel Movements 1 - Constitutional General appearance: Present: no acute distress - EENT Eyes: Absent: abnormal pupil - Neck Neck: Absent: lymphadenopathy - Respiratory Respiratory: bilateral: CTA - Cardiovascular Rhythm: regular Heart sounds: normal: S1, S2 - Gastrointestinal General gastrointestinal: Present: normal bowel sounds, soft. Absent: tenderness - Integumentary Integumentary: Present: normal. Absent: rash - Psychiatric Psychiatric: Present: A&O x's 3 - Labs CBC & Chem 7: 11/20/18 06:38 11/20/18 06:38 Assessment and Plan (1) Hyperlipidemia Current Visit: Yes Status: Acute Code(s): E78.5 - HYPERLIPIDEMIA, UNSPECIFIED SNOMED Code(s): 38195952 (2) History of colectomy Current Visit: Yes Status: Acute Code(s): Z90.49 - ACQUIRED ABSENCE OF OTHER SPECIFIED PARTS OF DIGESTIVE TRACT SNOMED Code(s): 456313660 (3) Hypertension Current Visit: Yes Status: Acute Code(s): I10 - ESSENTIAL (PRIMARY) HYPERTENSION SNOMED Code(s): 27243595 (4) Gout Current Visit: Yes Status: Acute Code(s): M10.9 - GOUT, UNSPECIFIED SNOMED Code(s): 80264510 (5) Tubulovillous adenoma Current Visit: Yes Status: Acute Code(s): D36.9 - BENIGN NEOPLASM, UNSPECIFIED SITE SNOMED Code(s): 252092360 Plan: Continue appropriate post op treatment. Doing well-Advancediet per surgery. Anticipate DC in 24-48 hours. Time with Patient: Less than 30
--- NOTE | 2018-11-21 11:08 | P.PN ---
Subjective Progress Note Date: 11/21/18 CHIEF COMPLAINT: tubulovillous adenoma HISTORY OF PRESENT ILLNESS: Patient is S/P left colectomy. POD #6. Patient examined this morning. He is sitting in the chair. Pain controlled on current regimen. Voiding without difficulty. Patient passing flatus. He reports bowel movement yesterday. He would like to be discharged today if possible. PHYSICAL EXAM: VITAL SIGNS: Reviewed. GENERAL: Well-developed in no acute distress. HEENT: No sclera icterus. Extraocular movements grossly intact. Moist buccal mucosa. Head is atraumatic, normocephalic. ABDOMEN: Soft. Nondistended. Appropriate surgical tenderness. Dressing intact. NEUROLOGIC: Alert and oriented. Cranial nerves II through XII grossly intact. ASSESSMENT: 1. Tubulovillous adenoma, s/p left colectomy PLAN: 1. Advance diet to low fiber 2. Pain control. Add [place]. 3. Incentive spirometry 4. Activity as tolerated 5. Patient requesting to be discharged this evening. Will advance diet and see how patient tolerates. Anticipate likely DC home tomorrow but will re-evaluate patient this afternoon for possible discharge Nurse practitioner note has been reviewed by physician. Signing provider agrees with the documented findings, assessment, and plan of care. Objective - Vital Signs Vital signs: Vital Signs Temp 98.3 F 11/21/18 07:00 Pulse 68 11/21/18 07:00 Resp 16 11/21/18 07:00 BP 162/71 11/21/18 07:00 Pulse Ox 94 L 11/21/18 07:00 Intake & Output 11/20/18 11/21/18 11/21/18 18:59 06:59 18:59 Other: Voiding Method Toilet # Voids 1 2 # Bowel Movements 1 - Labs CBC & Chem 7: 11/20/18 06:38 11/20/18 06:38
[2018-11-21] MEDS: HYDROcodone/APAP 5-325MG 1 EACH TAB PO PRN ×2 (15:23→20:29)
[2018-11-21] MEDS: ATORVASTATIN 10 MG TAB PO SCH (20:26)
[2018-11-21] MEDS: METOPROLOL SUCCINATE (ER) 50 MG TAB.ER.24H PO SCH (20:26)
[2018-11-21] MEDS: amLODIPine 5 MG TAB PO SCH (21:58)
[2018-11-22] MEDS: METOCLOPRAMIDE 5 MG/ML 2 ML VIAL IVP SCH ×2 (00:03→06:05)
[2018-11-22] MEDS: LACTATED RINGERS 1,000 ML IV SCH (05:07)
[2018-11-22] MEDS: HYDROcodone/APAP 5-325MG 1 EACH TAB PO PRN (06:05)
[2018-11-22] MEDS: LEVOTHYROXINE 125 MCG TAB PO SCH (06:05)
[2018-11-22 08:03] VITALS: BP 171/76; PULSE 69; RESP 16; TEMP 98.4
[2018-11-22] MEDS: ALLOPURINOL 300 MG TAB PO SCH (08:42)
[2018-11-22] MEDS: amLODIPine 5 MG TAB PO SCH (08:42)
[2018-11-22] MEDS: HEPARIN SODIUM,PORCINE 5,000 UNIT/ML 1 ML VIAL SQ SCH (08:43)
[2018-11-22] MEDS: LOSARTAN 50 MG TAB PO SCH (08:43)
[2018-11-22] MEDS: FAMOTIDINE 20 MG TAB PO SCH (08:43)
[2018-11-22] MEDS: D5-0.9% NACL WITH KCL 20 MEQ/L 1,000 ML IV SCH (08:57)
--- NOTE | 2018-11-22 10:58 | P.DS ---
Providers Date of admission: 11/15/18 05:44 Expected date of discharge: 11/22/18 Attending physician: Terry Broderick Consults: 11/15/18 10:37 Consult Physician Routine Consulting Provider: Moe Ward Consult Reason/Comments: Medical management Do you want consulting provider notified?: Yes Primary care physician: Moe Ward Hospital Course: 78 year old male who underwent left colectomy secondary to tubulovillous adenoma. Patient doing well postoperatively. He is tolerating diet without nausea or vomiting. Vital signs stable. Passing flatus and having bowel move ments. Pathology report positive for adenocarcinoma. Lymph nodes negative. Patient is stable for discharge home today per Dr. Broderick. He is to follow up on an outpatient basis. Patient will also follow-up with oncology postoperatively for further evaluation. Please see EMR for further hospital course details. Discharge Diagnosis: 1. Tubulovillous adenoma, s/p left colectomy, pathology report positive for adenocarcinoma Nurse practitioner note has been reviewed by physician. Signing provider agrees with the documented findings, assessment, and plan of care. Plan - Discharge Summary Discharge Rx Participant: No New Discharge Prescriptions: New Hydrocodone/Acetaminophen [[place]ne 5-325] 1 tab PO Q4HR PRN 3 Days #18 tab PRN Reason: Pain Losartan [Cozaar] 100 mg PO DAILY #30 tab amLODIPine [Norvasc] 5 mg PO DAILY #30 tab Continue Multivitamins, Thera [Multivitamin (formulary)] 1 tab PO HS Simvastatin [Zocor] 20 mg PO HS Metoprolol Succinate (ER) [Toprol XL] 50 mg PO HS Aspirin EC [Ecotrin Low Dose] 81 mg PO DAILY Levothyroxine Sodium [Synthroid] 125 mcg PO DAILY Probenecid/Colchicine [Probenecid-Colchicine Tablet] 1 tab PO DAILY Cetirizine HCl [Zyrtec] 10 mg PO BID Allopurinol [Zyloprim] 300 mg PO DAILY Fluticasone Nasal [place] [Flonase Nasal [place]] 1 - 2 spr EA NOSTRIL DAILY PRN PRN Reason: Allergy Symptoms Dicyclomine [Bentyl] 10 mg PO TID PRN PRN Reason: abdominal pain Discontinued Losartan [Cozaar] 50 mg PO DAILY Discharge Medication List Allopurinol [Zyloprim] 300 mg PO DAILY 10/06/15 [History] Aspirin EC [Ecotrin Low Dose] 81 mg PO DAILY 10/06/15 [History] Cetirizine HCl [Zyrtec] 10 mg PO BID 10/06/15 [History] Levothyroxine Sodium [Synthroid] 125 mcg PO DAILY 10/06/15 [History] Metoprolol Succinate (ER) [Toprol XL] 50 mg PO HS 10/06/15 [History] Multivitamins, Thera [Multivitamin (formulary)] 1 tab PO HS 10/06/15 [History] Probenecid/Colchicine [Probenecid-Colchicine Tablet] 1 tab PO DAILY 10/06/15 [History] Simvastatin [Zocor] 20 mg PO HS 10/06/15 [History] Fluticasone Nasal [place] [Flonase Nasal [place]] 1 - 2 spr EA NOSTRIL DAILY PRN 12/06/16 [History] Dicyclomine [Bentyl] 10 mg PO TID PRN 10/19/18 [History] Hydrocodone/Acetaminophen [[place] 5-325] 1 tab PO Q4HR PRN 3 Days #18 tab 11/15/18 [Rx] Losartan [Cozaar] 100 mg PO DAILY #30 tab 11/22/18 [Rx] amLODIPine [Norvasc] 5 mg PO DAILY #30 tab 11/22/18 [Rx] Follow up Appointment(s)/Referral(s): Jon Huff MD [STAFF PHYSICIAN] - 1 Week (positive pathology. needs consult appointment) Moe Ward MD [Primary Care Provider] - 1 Week Terry Broderick MD [STAFF PHYSICIAN] - 1 Week Patient Instructions/Handouts: Colectomy (DC) Activity/Diet/Wound Care/Special Instructions: No driving while taking [place] No lifting over 10 pounds You may shower. No soaking or tub baths Very light activity until you are reevaluated at your follow up appointment with your surgeon You may remove abdominal dressing in 5 days. Leave open to air after dressing removed
--- NOTE | 2018-11-22 21:10 | P.PN ---
Subjective Principal diagnosis: POD #4 for colonic polyp This is a continue present on a 78-year-old white male with history of colon polyps status post partial colectomy. No flatus as of yet. There is element of delirium which is suspect is related to anesthesia. Element of hypertension is noted. The patient seems quite lucid now this morning and can answer questions appropriately. Most likely the patient had an element of toxic and valvulopathy after anesthesia with which was an unexpected outcome. 11/21 Flatus now present. Increase dietary intake per surgery 11/22. The patient is walking appropriately. > I do suspect discharge today. The patient is otherwise tolerat Objective - Vital Signs Vital signs: Vital Signs Temp 98.4 F 11/22/18 07:00 Pulse 69 11/22/18 07:00 Resp 16 11/22/18 07:00 BP 171/76 11/22/18 07:00 Pulse Ox 95 11/22/18 07:00 Intake & Output 11/22/18 11/22/18 11/23/18 06:59 18:59 06:59 Intake Total 600 Balance 600 Weight 99.79 kg Intake: Oral 600 Other: # Voids 2 - Constitutional General appearance: Present: no acute distress - EENT Eyes: Absent: abnormal pupil - Neck Neck: Absent: lymphadenopathy - Respiratory Respiratory: bilateral: CTA - Cardiovascular Rhythm: regular Heart sounds: normal: S1, S2 Abnormal Heart Sounds: Absent: S3 Gallop - Gastrointestinal General gastrointestinal: Present: soft. Absent: tenderness - Psychiatric Psychiatric: Present: A&O x's 3. Absent: appropriate affect - Labs CBC & Chem 7: 11/20/18 06:38 11/20/18 06:38 Assessment and Plan (1) Hyperlipidemia Status: Acute Code(s): E78.5 - HYPERLIPIDEMIA, UNSPECIFIED SNOMED Code(s): 89202987 (2) History of colectomy Status: Acute Code(s): Z90.49 - ACQUIRED ABSENCE OF OTHER SPECIFIED PARTS OF DIGESTIVE TRACT SNOMED Code(s): 374345761 (3) Hypertension Status: Acute Code(s): I10 - ESSENTIAL (PRIMARY) HYPERTENSION SNOMED Code (s): 29175031 (4) Gout Status: Acute Code(s): M10.9 - GOUT, UNSPECIFIED SNOMED Code(s): 67217712 (5) Tubulovillous adenoma Status: Acute Code(s): D36.9 - BENIGN NEOPLASM, UNSPECIFIED SITE SNOMED Code(s): 776337272 Plan: Continue appropriate post op treatment. Doing well-Advancediet per surgery. We will DC home with additional Norvasc and Cozaar 100 mg. Follow-up with me in 1 week.
--- NOTE | 2018-11-23 09:20 | P.OP ---
Date of Procedure: 11/15/18 Preoperative Diagnosis: Left colon polyp Postoperative Diagnosis: Left colon polyp at splenic flexure Procedure(s) Performed: Laparoscopic left colectomy with takedown of splenic flexure Anesthesia: MACIEJ Surgeon: Terry Broderick Estimated Blood Loss (ml): 50 Pathology: other (Splenic flexure) Condition: stable Disposition: PACU Description of Procedure: The patient's placed on the operative table in supine position. He received general anesthesia. His abdomen was prepped and draped in the usual sterile fashion. The patient had been placed in dorsal 5 position. Next, a infra umbilical skin incision was made then using a Paula clamp the umbilicus is grasped and then a Veress needles placed into the position perineal cavity. Position of the Veress needle was confirmed with positive drop test the abdomen insufflated. After adequate insufflation a 5 mm optical trocar is placed to cavity under direct vision. The abdomen was reinsufflated and then another 5 trochars placed in the epigastric position and another 5 mm trochars placed in low midline position. The left colon was visualized. There was a tear to area next to the splenic flexure. At this point the splenic flexure and left colon were mobilized completely. After adequate mobilization colon. The trochars withdrawn. Skin was incised Umbilical position. Fascia was divided midline. And then the bowel was brought up into the wound. The colon was transected proximally distally to the tattooed area. And then a [id number] functional end-to-end staple anastomosis created using the CORINA and TA staplers. A 3-0 GI silk sutures used as a crotch stitch. The colon was then placed back the Prevenaural cavity. The abdomen was irrigated. The fascia was closed with number once traffic suture. Skin was closed roman. Patient top she will was sent to recovery room stable condition.
== END 2018-11-22 11:50 | disposition home or self-care (01) | DRG 329 ==
LOC: 2ORMAIN 05:44 → 4SSUR 10:11
PROVIDERS: ADMIT Surgery; ATTEND Surgery
PROC: 0DTL4ZZ Resection of Transverse Colon, Percutaneous Endoscopic Approach (ICD-10-PCS; principal; 2018-11-15 07:40)
DX: C18.9 Malignant neoplasm of colon, unspecified (principal); G92 Toxic encephalopathy; D12.4 Benign neoplasm of descending colon; I10 Essential (primary) hypertension; E03.9 Hypothyroidism, unspecified; E78.5 Hyperlipidemia, unspecified; Z95.1 Presence of aortocoronary bypass graft; T41.45XA Adverse effect of unspecified anesthetic, initial encounter; Y92.238 Other place in hospital as the place of occurrence of the external cause; Z95.5 Presence of coronary angioplasty implant and graft; I25.10 Atherosclerotic heart disease of native coronary artery without angina pectoris; M10.9 Gout, unspecified; Z79.82 Long term (current) use of aspirin; Z79.890 Hormone replacement therapy; Z79.899 Other long term (current) drug therapy; Z85.828 Personal history of other malignant neoplasm of skin; Z86.010 Personal history of colon polyps; Z87.891 Personal history of nicotine dependence; Z88.1 Allergy status to other antibiotic agents; Z98.42 Cataract extraction status, left eye; Z98.41 Cataract extraction status, right eye; Z90.49 Acquired absence of other specified parts of digestive tract; Z90.89 Acquired absence of other organs; Z80.9 Family history of malignant neoplasm, unspecified; Z91.048 Other nonmedicinal substance allergy status
CPT/HCPCS: 80048; 80051; 80053; 85025; 85027; 86850; 86900; 86901; 88309; 94640; 94760

== ENCOUNTER → 2018-12-03 | Outpatient (CLI) | payer MEDICARE ==
[2018-12-03 19:54] LABS: Chol/HDL Ratio 4.42; LDL Cholesterol,Calculated 46.8 mg/dL (0.0-131.0); VLDL Calculation 35.2 mg/dL (5.00-40.00)
== END | disposition home or self-care (01) ==
LOC: LABWHC1 08:44
PROVIDERS: ATTEND Internal Medicine Interventional Cardiology
DX: E78.2 Mixed hyperlipidemia (principal)
CPT/HCPCS: 36415; 80061; 84450; 84460

== ENCOUNTER 2019-11-14 10:19 | Day surgery (SDC) | payer MEDICARE ==
[2019-11-11 11:56] VITALS: BMI 33.1
[~2019-11-14 10:19] MED LIST changes: -HEPARIN SODIUM,PORCINE 5,000 UNIT/ML 1 ML VIAL SQ ONE; +LACTATED RINGERS 1,000 ML IV SCH; -metroNIDAZOLE-NS PMX 500 MG in SALINE 1 100ML.BAG IVPB ONE
[2019-11-14] MEDS ORDERED: LIDOCAINE 1% (10MG/ML) FOR IV START INTRADERMA ONE (11:20)
[2019-11-14 11:25] VITALS: RESP 16; TEMP 98.1
[2019-11-14] MEDS ORDERED: PROPOFOL 10 MG/ML 20 ML VIAL IV ONE (11:54)
--- NOTE | 2019-11-14 11:56 | P.GSHP ---
History of Present Illness H&P Date: 11/14/19 Chief Complaint: Left colon cancer This a 79-year-old male presents today for colonoscopy. Patient is a. History of left colon cancer. He denies a significant GI complaints. Past Medical History Past Medical History: Coronary Artery Disease (CAD), Cancer, Hypertension, Thyroid Disorder Additional Past Medical History / Comment(s): colon polyps, hx hiatal hernia, gout, basal cell skin cancer, celiac History of Any Multi-Drug Resistant Organisms: None Reported Past Surgical History: Coronary Bypass/CABG, Heart Catheterization With Stent, Orthopedic Surgery Additional Past Surgical History / Comment(s): rt knee arthroscopy, 6 cardiac stents, nohelia cataracts, vasectomy, colonoscopy Past Anesthesia/Blood Transfusion Reactions: Previous Problems w/ Anesthesia Additional Past Anesthesia/Blood Transfusion Reaction / Comment(s): previous epidural anesthesia-caused confusion Date of Last Stent Placement:: 2010 Smoking Status: Former smoker - Past Family History Mother Family Medical History: Cancer Sister(s) Family Medical History: Cancer Brother(s) Family Medical History: Cancer Medications and Allergies Home Medications Medication Instructions Recorded Confirmed Type Aspirin EC [Ecotrin Low Dose] 81 mg PO DAILY 10/06/15 11/11/19 History Cetirizine HCl [Zyrtec] 10 mg PO BID 10/06/15 11/11/19 History Levothyroxine Sodium [Synthroid] 125 mcg PO DAILY 10/06/15 11/11/19 History Metoprolol Succinate (ER) [Toprol 50 mg PO HS 10/06/15 11/11/19 History XL] Multivitamins, Thera [Multivitamin 1 tab PO HS 10/06/15 11/11/19 History (formulary)] Probenecid/Colchicine 1 tab PO BID 10/06/15 11/11/19 History [Probenecid-Colchicine Tablet] Simvastatin [Zocor] 20 mg PO HS 10/06/15 11/11/19 History allopurinoL [Zyloprim] 300 mg PO DAILY 10/06/15 11/11/19 History Fluticasone Nasal [place] [Flonase 1 - 2 spr EA NOSTRIL DAILY PRN 12/06/16 11/11/19 History Nasal [place]] Losartan [Cozaar] 100 mg PO DAILY #30 tab 11/22/18 11/11/19 Rx Allergies Allergy/AdvReac Type Severity Reaction Status Date / Time gluten Allergy celiac dx Verified 11/11/19 11:47 erythromycin base AdvReac Nausea & Verified 11/11/19 11:47 Vomiting & Diarrhea Surgical - Exam Vital Signs Temp Pulse Resp BP Pulse Ox 98.1 F 80 16 164/76 96 11/14/19 11:11 11/14/19 11:11 11/14/19 11:11 11/14/19 11:11 11/14/19 11:11 - General well developed, well nourished, no distress - Eyes PERRL - ENT normal pinna - Neck no masses - Respiratory normal expansion - Cardiovascular Rhythm: regular - Abdomen Abdomen: soft, non tender Assessment and Plan Assessment: History of Left colon cancer. We'll perform colonoscopy.
--- NOTE | 2019-11-14 12:12 | P.OP ---
Date of Procedure: 11/14/19 Preoperative Diagnosis: History of left colon cancer Postoperative Diagnosis: Normal colonoscopy status post left colectomy, no evidence of recurrent colon cancer Procedure(s) Performed: Colonoscopy Anesthesia: MAC Surgeon: Terry Broderick Pathology: none sent Condition: stable Disposition: PACU Description of Procedure: The patient's placed on the endoscopy table in the lateral position. He received IV cyst. Digital rectal exam was performed which revealed no abnormalities. Flexible colonoscope was then placed patient anus passed throughout the entire colon. The cecal valve sutures. The cecum, ascending and transverse colon appeared normal. The patient a previous left colectomy of splenic flexure. The anastomosis visualized. There is no evidence of any recurrent colon cancer remainder the descending colon and sigmoid colon appeared normal. The colonoscope was then withdrawn the rectum and this appeared normal. Scope was then withdrawn for patient.
[2019-11-14 12:56] VITALS: BP 135/69; PULSE 67
== END 2019-11-14 12:50 | disposition home or self-care (01) ==
LOC: ORWHC2ENDO 10:19
PROVIDERS: ATTEND Surgery
DX: Z12.11 Encounter for screening for malignant neoplasm of colon (principal); I10 Essential (primary) hypertension; I25.10 Atherosclerotic heart disease of native coronary artery without angina pectoris; E07.9 Disorder of thyroid, unspecified; Z85.038 Personal history of other malignant neoplasm of large intestine; Z90.49 Acquired absence of other specified parts of digestive tract; Z98.0 Intestinal bypass and anastomosis status; Z91.02 Food additives allergy status; Z88.1 Allergy status to other antibiotic agents; Z85.828 Personal history of other malignant neoplasm of skin; Z86.010 Personal history of colon polyps; Z79.899 Other long term (current) drug therapy; Z79.82 Long term (current) use of aspirin; Z79.51 Long term (current) use of inhaled steroids; Z79.890 Hormone replacement therapy; M10.9 Gout, unspecified; Z95.1 Presence of aortocoronary bypass graft; Z95.5 Presence of coronary angioplasty implant and graft; Z98.52 Vasectomy status; Z87.891 Personal history of nicotine dependence; Z87.19 Personal history of other diseases of the digestive system
CPT/HCPCS: J2704; G0105

== ENCOUNTER → 2020-02-05 | Outpatient (CLI) | payer MEDICARE ==
[2020-02-05 17:15] LABS: LDL Cholesterol,Calculated 31.4 mg/dL (0.0-131.0); VLDL Calculation 49.6 mg/dL (5.00-40.00)
== END | disposition home or self-care (01) ==
LOC: LABWHC1 09:28
PROVIDERS: ATTEND Nurse Practitioner Adult Health
DX: E78.2 Mixed hyperlipidemia (principal)
CPT/HCPCS: 36415; 80061; 84450; 84460

== ENCOUNTER → 2020-02-18 | Outpatient (CLI) | payer MEDICARE ==
--- NOTE | 2020-02-19 12:20 | BD ---
EXAMINATION TYPE: Axial Bone Density DATE OF EXAM: 02/18/2020 COMPARISON: NONE CLINICAL HISTORY: 79 YR OLD MALE.....ICD-10 CODE: K90.9 MALABSORPTION Height: 66 Weight: 220 FRAX RISK QUESTIONS: Family History (Parent hip fracture): YES Current Tobacco Use: QUIT 1978 RISK FACTORS HISTORY OF: Family History of Osteoporosis: YES, SISTER, WITH HIP FX Lost more than 2 inches in height since high school: YES Hyperparathyroidism: NO Adrenal Insufficiency: NO MEDICATIONS: Prednisone or other steroids: ALLERGY MEDS ONLY, NO STEROIDS Thyroid Medications: YES, SYNTHROID, FOR ABOUT 20+ YRS Additional Medications: BP MEDS, STATIN FOR CHOLESTEROL, MULTIVITAMIN WITH CALCIUM Additional History: GLUTEN SENSITIVE, HYPERTENSION, CHOLESTEROL, HEART BYPASS, QUADRUPL, HX OF COLON CA, EXAM MEASUREMENTS: Bone mineral densitometry was performed using the [employer] System. Bone mineral density as measured about the Lumbar spine is: ----- L1-L4(G/cm2): 1.418 T Score Values are as follows: ----- L1: 0.0 ----- L2: 1.0 ----- L3: 2.4 ----- L4: 4.0 ----- L1-L4: 2.0 Bone mineral density FIRST BONE DENSITY AT [facility] Bone mineral density about the R hip (g/cm2): 1.085 Bone mineral density about the L hip (g/cm2): 1.123 T Score values are as follows: -----R Neck: -0.4 -----L Neck: -0.3 -----R Total: 0.6 -----L Total: 0.9 Bone mineral density FIRST BONE DENSITY AT [facility] FRAX%s: THERE IS A 10.8% CHANCE FOR A MAJOR OSTEOPOROTIC FX AND A 6.4% FOR HIP.....PROBABILITY FOR FX IN 10 YRS TIME IMPRESSION: No evidence for osteoporosis or osteopenia. NOTE: T-SCORE=SD OF THE YOUNG ADULT MEAN.
== END | disposition home or self-care (01) ==
LOC: RADBDWWP 15:27
PROVIDERS: ATTEND Family Medicine
DX: K90.9 Intestinal malabsorption, unspecified (principal); Z79.52 Long term (current) use of systemic steroids; Z85.038 Personal history of other malignant neoplasm of large intestine
CPT/HCPCS: 77080

== ENCOUNTER → 2020-06-29 | Outpatient (CLI) | payer MEDICARE ==
[2020-06-29 22:05] LABS: African American GFR (CKD) 65.8 (60.0-200.0); Albumin 4.3 g/dL (3.80-4.90); Albumin/Globulin Ratio 1.59 (1.60-3.17); Anion Gap 10.1 mmol/L (4.00-12.00); BUN/Creat Ratio 16.67 Ratio (12.00-20.00); Calcium 9.4 mg/dL (8.7-10.3); Carbon Dioxide 23.9 mmol/L (21.6-31.8); Chol/HDL Ratio 4.26; Globulin 2.7 g/dL (1.6-3.3); LDL Cholesterol,Calculated 45.4 mg/dL (0.0-131.0); Non-African American GFR(CKD) 56.8 (60.0-200.0); Potassium 4.7 mmol/L (3.5-5.5); Total Bilirubin 0.7 mg/dL (0.3-1.2); VLDL Calculation 42.6 mg/dL (5.00-40.00)
== END | disposition home or self-care (01) ==
LOC: LABWHC1 09:36
PROVIDERS: ATTEND Internal Medicine Interventional Cardiology
DX: E78.2 Mixed hyperlipidemia (principal)
CPT/HCPCS: 36415; 80053; 80061

== ENCOUNTER 2020-11-12 08:33 | Day surgery (SDC) | payer MEDICARE ==
[2020-11-10 09:23] VITALS: BMI 33.1
[2020-11-12 08:55] VITALS: RESP 16; TEMP 97.3
[2020-11-12] MEDS ORDERED: LIDOCAINE 1% (10MG/ML) FOR IV START INTRADERMA ONE (08:58)
[2020-11-12] MEDS ORDERED: PROPOFOL 10 MG/ML 20 ML VIAL IV ONE (09:12)
[2020-11-12] MEDS ORDERED: ePHEDrine SULFATE/0.9% NACL/PF 50 MG/5 ML SYRINGE IV ONE (09:12)
[2020-11-12] MEDS ORDERED: LIDOCAINE 1% INJ 10MG/ML (20 ML MDV) ONE (09:12)
--- NOTE | 2020-11-12 09:15 | P.GSHP ---
History of Present Illness H&P Date: 11/12/20 Chief Complaint: History of colon cancer This is a 80-year-old male with a previous history of colon cancer. Patient presents today for colonoscopy. He is appears history of a left colectomy. Past Medical History Past Medical History: Coronary Artery Disease (CAD), Cancer, Hypertension, Thyroid Disorder Additional Past Medical History / Comment(s): HX OF SUBDURAL HEMATOMA., BASAL & SQUAMOUS CELL SKIN CANCER, COLON CANCER (SURGERY 10/2018).,COLON POLYPS, HIATAL HERNIA, GOUT, CELIAC DISEASE., History of Any Multi-Drug Resistant Organisms: None Reported Past Surgical History: Bowel Resection, Coronary Bypass/CABG, Heart Catheterization With Stent, Orthopedic Surgery Additional Past Surgical History / Comment(s): rt knee arthroscopy, 6 cardiac stents, nohelia cataracts, vasectomy, colonoscopy., BOWEL RESECTION (10/2018)., CABG (2011). Past Anesthesia/Blood Transfusion Reactions: No Reported Reaction Additional Past Anesthesia/Blood Transfusion Reaction / Comment(s): previous epidural anesthesia-caused confusion Date of Last Stent Placement:: 2010 Past Psychological History: No Psychological Hx Reported Smoking Status: Former smoker Past Alcohol Use History: None Reported Additional Past Alcohol Use History / Comment(s): quit smoking 1978, smoked for 30 yrs, 1 PPD Past Drug Use History: None Reported - Past Family History Mother Family Medical History: Cancer Additional Family Medical History / Comment(s): BREAST CANCER Sister(s) Family Medical History: Cancer Additional Family Medical History / Comment(s): BREAST AND SKIN CANCER Brother(s) Family Medical History: Cancer Additional Family Medical History / Comment(s): SKIN CANCER Medications and Allergies Home Medications Medication Instructions Recorded Confirmed Type Aspirin EC [Ecotrin Low Dose] 81 mg PO DAILY 10/06/15 11/12/20 History Cetirizine HCl [Zyrtec] 10 mg PO BID 10/06/15 11/12/20 History Levothyroxine Sodium [Synthroid] 125 mcg PO DAILY 10/06/15 11/12/20 History Metoprolol Succinate (ER) [Toprol 50 mg PO HS 10/06/15 11/12/20 History XL] Probenecid/Colchicine 1 tab PO BID 10/06/15 11/12/20 History [Probenecid-Colchicine Tablet] Simvastatin [Zocor] 20 mg PO HS 10/06/15 11/12/20 History allopurinoL [Zyloprim] 300 mg PO DAILY 10/06/15 11/12/20 History Losartan [Cozaar] 100 mg PO DAILY #30 tab 11/22/18 11/12/20 Rx Multivit-Min/FA/Lycopen/Lutein 1 each PO DAILY 11/10/20 11/12/20 History [Centrum Silver Men Tablet] Allergies Allergy/AdvReac Type Severity Reaction Status Date / Time gluten Allergy celiac dx Verified 11/12/20 08:52 erythromycin base AdvReac pain in Verified 11/12/20 08:52 stomach Surgical - Exam Vital Signs Temp Pulse Resp BP Pulse Ox 97.3 F L 60 16 164/77 97 11/12/20 08:52 11/12/20 08:52 11/12/20 08:52 11/12/20 08:52 11/12/20 08:52 - General well developed, well nourished, no distress - Eyes PERRL - ENT normal pinna - Neck no masses - Respiratory normal expansion - Cardiovascular Rhythm: regular - Abdomen Abdomen: soft, non tender Assessment and Plan Assessment: History of of colon cancer. We'll perform colonoscopy.
--- NOTE | 2020-11-12 09:27 | P.OP ---
Date of Procedure: 11/12/20 Preoperative Diagnosis: History of left colon cancer Postoperative Diagnosis: Normal colonoscopy Procedure(s) Performed: Colonoscopy Anesthesia: MAC Surgeon: eTrry Broderick Pathology: none sent Condition: stable Disposition: PACU Description of Procedure: Patient's placed on the endoscopy table in the lateral position. He received IV sedation. Digital rectal exam was performed which revealed no ebonized. The colonoscope was then placed patient anus passed throughout the entire colon. The patient had a colonic anastomosis visualized in the left colon which appeared normal. The The ileocecal valve sutures. The cecum, ascending and transverse colon appeared normal. Thecolon colonic anastomosis visualized. This appeared normal. Scope was brought back and sigmoid colon appeared normal. The rectum appeared normal. Scope withdrawn the patient.
[2020-11-12 10:02] VITALS: BP 131/57; PULSE 58
== END 2020-11-12 10:27 | disposition home or self-care (01) ==
LOC: ORWHC2ENDO 08:33
PROVIDERS: ATTEND Surgery
DX: Z08 Encounter for follow-up examination after completed treatment for malignant neoplasm (principal); Z85.038 Personal history of other malignant neoplasm of large intestine; I25.10 Atherosclerotic heart disease of native coronary artery without angina pectoris; I10 Essential (primary) hypertension; E07.9 Disorder of thyroid, unspecified; K90.0 Celiac disease; M10.9 Gout, unspecified; Z79.82 Long term (current) use of aspirin; Z79.899 Other long term (current) drug therapy; Z95.5 Presence of coronary angioplasty implant and graft; Z80.3 Family history of malignant neoplasm of breast; Z85.828 Personal history of other malignant neoplasm of skin; Z87.891 Personal history of nicotine dependence; Z98.42 Cataract extraction status, left eye; Z98.41 Cataract extraction status, right eye; Z79.890 Hormone replacement therapy; Z90.49 Acquired absence of other specified parts of digestive tract; Z95.1 Presence of aortocoronary bypass graft; Z88.1 Allergy status to other antibiotic agents
CPT/HCPCS: 45378; J2001; J2704

== ENCOUNTER → 2020-12-21 | Outpatient (CLI) | payer MEDICARE ==
[2020-12-21 21:49] LABS: African American GFR (CKD) 73.1 (60.0-200.0); Albumin 4.2 g/dL (3.8-4.9); Albumin/Globulin Ratio 1.56 (1.60-3.17); Anion Gap 12.5 mmol/L (4.00-12.00); BUN/Creat Ratio 17.82 Ratio (12.00-20.00); Blood Urea Nitrogen 19.6 mg/dL (9.0-27.0); Calcium 9.4 mg/dL (8.7-10.3); Carbon Dioxide 22.5 mmol/L (21.6-31.8); Chol/HDL Ratio 4.09 Ratio; Globulin 2.7 g/dL (1.6-3.3); HDL Cholesterol 26.9 mg/dL (40.00-60.00); LDL Cholesterol,Calculated 40.5 mg/dL (0.0-131.0); Non-African American GFR(CKD) 63.1 (60.0-200.0); Potassium 4.9 mmol/L (3.5-5.5); Total Bilirubin 0.3 mg/dL (0.30-1.20); Total Protein 6.9 g/dL (6.2-8.2); VLDL Calculation 42.6 mg/dL (5.00-40.00)
== END | disposition home or self-care (01) ==
LOC: LABWHC1 10:51
PROVIDERS: ATTEND Internal Medicine Interventional Cardiology
DX: E78.2 Mixed hyperlipidemia (principal)
CPT/HCPCS: 36415; 80053; 80061

== ENCOUNTER → 2021-06-21 | Outpatient (CLI) | payer MEDICARE ==
[2021-06-22 01:11] LABS: Chol/HDL Ratio 4.16 Ratio; LDL Cholesterol,Calculated 41.1 mg/dL (0.0-131.0)
[2021-06-22 01:12] LABS: ALT 63 U/L (10-49); AST 55 U/L (14-35); African American GFR (CKD) 75.1 (60.0-200.0); Albumin/Globulin Ratio 1.52 (1.60-3.17); Alkaline Phosphatase 86 U/L (41-126); BUN/Creat Ratio 25.89 Ratio (12.00-20.00); Blood Urea Nitrogen 27.7 mg/dL (9.0-27.0); Carbon Dioxide 22.4 mmol/L (20.0-27.5); Chloride 105 mmol/L (96-109); Globulin 2.6 g/dL (1.6-3.3); Glucose 107 mg/dL (70-110); Non-African American GFR(CKD) 64.8 (60.0-200.0); Potassium 4.3 mmol/L (3.5-5.5); Sodium 138 mmol/L (135-145); Total Protein 6.6 g/dL (6.2-8.2)
== END | disposition home or self-care (01) ==
LOC: LABWHC1 08:55
PROVIDERS: ATTEND Internal Medicine Interventional Cardiology
DX: E78.2 Mixed hyperlipidemia (principal)
CPT/HCPCS: 36415; 80053; 80061

== ENCOUNTER → 2021-11-08 | Outpatient (CLI) | payer MEDICARE ==
--- NOTE | 2021-11-08 16:17 | CT ---
EXAMINATION TYPE: CT abdomen pelvis wo con CT DLP: 922.9 mGycm, Automated exposure control for dose reduction was used. DATE OF EXAM: 11/08/2021 3:56 PM COMPARISON: None CLINICAL INDICATION:Male, 81 years old with history of R94.5 ABNORMAL RESULTS OF LIVER FUNCTION STUDI ES; ABNORMAL RESULTS OF LIVER FUNCTION STUDIES TECHNIQUE: Axial CT of the abdomen and pelvis. Sagittal and coronal reformats were created on a [employer] workstation. Contrast used: None Oral contrast used: without Oral Contrast FINDINGS: LOWER CHEST: Partial visualization of sternotomy wires. Atherosclerosis of the coronary arterial vasc ulature. Right middle lobe 4 mm pulmonary nodule. ABDOMEN LIVER: Surface contour appears smooth. There is no evidence of steatosis. No evidence of mass on this limited exam without contrast. GALLBLADDER AND BILE DUCTS: Layering increased densities within the lumen consistent with gallstones are present. PANCREAS: Mild fatty atrophy changes of the pancreatic head and uncinate process. SPLEEN: Scattered calcified granulomas. ADRENAL GLANDS: Unremarkable. KIDNEYS AND URETERS: No evidence of hydronephrosis or renal calculus. Right renal cyst present. PELVIS BLADDER: Unremarkable REPRODUCTIVE: Unremarkable. ABDOMEN & PELVIS STOMACH AND BOWEL: No evidence of bowel obstruction. Appendix is normal. PERITONEUM: No evidence of pneumoperitoneum or free fluid. VASCULATURE: No evidence of aortic aneurysm. Moderate atherosclerosis of the arterial vasculature. Mendez spected postsurgical changes to the descending colon. MUSCULOSKELETAL: No acute osseous abnormalities, multilevel disc degeneration changes are seen throug hout the spine. LYMPH NODES: No gross evidence for lymphadenopathy. SOFT TISSUE/ABDOMINAL WALL: Left fat filled inguinal hernia. Fat-containing ventral wall hernia near the umbilicus. IMPRESSION: 1. No evidence for hepatic steatosis or hepatic mass on this limited exam secondary to noncontrast te chnique. 2. Cholelithiasis. 3. Colonic diverticulosis. 4. 4 mm middle lobe pulmonary nodule. Consider follow-up in one year.
== END | disposition home or self-care (01) ==
LOC: RADCTMAIN 15:32
PROVIDERS: ATTEND Family Medicine
DX: K80.20 Calculus of gallbladder without cholecystitis without obstruction (principal); K57.30 Diverticulosis of large intestine without perforation or abscess without bleeding; R91.1 Solitary pulmonary nodule
CPT/HCPCS: 74176

== ENCOUNTER 2021-11-18 07:00 | Day surgery (SDC) | payer MEDICARE ==
[2021-11-16 14:32] VITALS: BMI 31.4
[2021-11-18 07:26] VITALS: RESP 16; TEMP 96.7
[2021-11-18] MEDS ORDERED: LIDOCAINE 1% (10MG/ML) FOR IV START INTRADERMA ONE (07:32)
--- NOTE | 2021-11-18 08:07 | P.GSHP ---
History of Present Illness H&P Date: 11/18/21 Chief Complaint: History of colon cancer Is an 81-year-old male with previous history of left colon cancer. Patient presents today for colonoscopy. Past Medical History Past Medical History: Coronary Artery Disease (CAD), Cancer, Hypertension, Thyroid Disorder Additional Past Medical History / Comment(s): HX OF SUBDURAL HEMATOMA., BASAL & SQUAMOUS CELL SKIN CANCER, COLON CANCER (SURGERY 10/2018).,COLON POLYPS, HIATAL HERNIA, GOUT, CELIAC DISEASE., HX OF H-PYLORI. History of Any Multi-Drug Resistant Organisms: None Reported Past Surgical History: Bowel Resection, Coronary Bypass/CABG, Heart Catheterization With Stent, Orthopedic Surgery Additional Past Surgical History / Comment(s): rt knee arthroscopy, 6 cardiac stents, nohelia cataracts, vasectomy, colonoscopy., BOWEL RESECTION (10/2018)., CABG x4 vessels 4 (2011). Past Anesthesia/Blood Transfusion Reactions: No Reported Reaction Additional Past Anesthesia/Blood Transfusion Reaction / Comment(s): States epidural pain medication post bowel resection caused confusion. Date of Last Stent Placement:: approx 2010 Past Psychological History: No Psychological Hx Reported Smoking Status: Former smoker Past Alcohol Use History: None Reported Additional Past Alcohol Use History / Comment(s): quit smoking 1978, smoked for 30 yrs, 1 PPD Past Drug Use History: None Reported - Past Family History Mother Family Medical History: Cancer Additional Family Medical History / Comment(s): BREAST CANCER Sister(s) Family Medical History: Cancer Additional Family Medical History / Comment(s): BREAST AND SKIN CANCER Brother(s) Family Medical History: Cancer Additional Family Medical History / Comment(s): SKIN CANCER Medications and Allergies Home Medications Medication Instructions Recorded Confirmed Type Aspirin EC [Ecotrin Low Dose] 81 mg PO DAILY 10/06/15 11/18/21 History Cetirizine HCl [Zyrtec] 10 mg PO BID 10/06/15 11/18/21 History Levothyroxine Sodium [Synthroid] 125 mcg PO DAILY 10/06/15 11/18/21 History Metoprolol Succinate (ER) [Toprol 50 mg PO HS 10/06/15 11/18/21 History XL] Probenecid/Colchicine 1 tab PO BID 10/06/15 11/18/21 History [Probenecid-Colchicine Tablet] Simvastatin [Zocor] 20 mg PO HS 10/06/15 11/18/21 History allopurinoL [Zyloprim] 300 mg PO DAILY 10/06/15 11/18/21 History Losartan [Cozaar] 100 mg PO DAILY #30 tab 11/22/18 11/18/21 Rx Multivit-Min/FA/Lycopen/Lutein 1 each PO DAILY 11/10/20 11/18/21 History [Centrum Silver Men Tablet] Fluticasone Nasal [place] [Flonase 1 spray EA NOSTRIL DIRECTED 11/16/21 11/18/21 History Nasal [place]] Isosorbide Mononitrate ER [Imdur] 30 mg PO DAILY 11/16/21 11/18/21 History L.acidoph,Paracasei, B.lactis 1 each PO DAILY 11/16/21 11/18/21 History [Probiotic] Allergies Allergy/AdvReac Type Severity Reaction Status Date / Time gluten Allergy celiac dx Verified 11/18/21 07:21 erythromycin base AdvReac pain in Verified 11/18/21 07:21 stomach antibiotic for H-pylori Allergy Unknown muscles Uncoded 11/18/21 07:21 tingling -needed steroids. Surgical - Exam Vital Signs Temp Pulse Resp BP Pulse Ox 96.7 F L 64 16 179/80 96 11/18/21 07:24 11/18/21 07:24 11/18/21 07:24 11/18/21 07:24 11/18/21 07:24 - General well developed, well nourished, no distress - Eyes PERRL - ENT normal pinna, normal nares, normal mucosa - Neck no masses - Respiratory normal expansion - Cardiovascular Rhythm: regular - Abdomen Abdomen: soft, non tender Assessment and Plan Assessment: History of colon cancer. We'll perform colonoscopy
[2021-11-18] MEDS ORDERED: ePHEDrine 50 MG/ML 1 ML VIAL ONE (08:10)
[2021-11-18] MEDS ORDERED: LIDOCAINE 2% INJ 20 MG/ML (2 ML VIAL) ONE (08:10)
[2021-11-18] MEDS ORDERED: PROPOFOL 10 MG/ML 20 ML VIAL IV ONE (08:10)
--- NOTE | 2021-11-18 08:24 | P.OP ---
Date of Procedure: 11/18/21 Preoperative Diagnosis: History of colon cancer Postoperative Diagnosis: Mild diverticulosis No evidence of recurrent colon cancer Procedure(s) Performed: Colonoscopy Anesthesia: MAC Surgeon: Terry Broderick Pathology: none sent Condition: stable Disposition: PACU Description of Procedure: The patient's placed on the endoscopy table in the lateral position. He received IV sedation. Digital rectal exam was performed. This revealed no N amount is. The flexible colonoscope was then placed patient anus passed rotator colon. Ileocecal valve was visualized. The cecum, right colon and transverse colon appeared normal. The anastomosis was visualized there is no evidence of any recurrent tumor. Scope was brought back and the remaining descending and sigmoid colon there is mild diverticular changes. Scope was brought back the rectum and this appeared normal. Scope withdrawn for patient.
[2021-11-18 08:43] VITALS: BP 126/77; PULSE 62
== END 2021-11-18 09:03 | disposition home or self-care (01) ==
LOC: ORWHC2ENDO 07:00
PROVIDERS: ATTEND Surgery
DX: Z12.11 Encounter for screening for malignant neoplasm of colon (principal); K57.30 Diverticulosis of large intestine without perforation or abscess without bleeding; I25.10 Atherosclerotic heart disease of native coronary artery without angina pectoris; I10 Essential (primary) hypertension; E78.5 Hyperlipidemia, unspecified; M10.9 Gout, unspecified; K90.0 Celiac disease; Z85.038 Personal history of other malignant neoplasm of large intestine; Z98.84 Bariatric surgery status; Z95.1 Presence of aortocoronary bypass graft; Z98.890 Other specified postprocedural states; Z98.41 Cataract extraction status, right eye; Z98.42 Cataract extraction status, left eye; Z98.52 Vasectomy status; Z87.891 Personal history of nicotine dependence; Z85.828 Personal history of other malignant neoplasm of skin; Z80.3 Family history of malignant neoplasm of breast; Z80.8 Family history of malignant neoplasm of other organs or systems; Z79.890 Hormone replacement therapy; Z79.82 Long term (current) use of aspirin; Z79.899 Other long term (current) drug therapy; Z88.1 Allergy status to other antibiotic agents; Z91.018 Allergy to other foods
CPT/HCPCS: G0105; J2704; J2001; 45378

== ENCOUNTER 2021-12-07 15:43 | Emergency (ER) | payer MEDICARE ==
[2021-12-07 15:55] VITALS: TEMP 97.7
[2021-12-07] MEDS ORDERED: SODIUM CHLORIDE 0.9% 500 ML 500 ML IV STA (16:24)
--- NOTE | 2021-12-07 16:31 | ED ---
General Adult HPI - General Chief complaint: Syncope Stated complaint: syncope Time Seen by Provider: 12/07/21 15:50 Source: patient, EMS, RN notes reviewed, old records reviewed Mode of arrival: EMS Limitations: no limitations - History of Present Illness Initial comments: This is an 81-year-old male who presents emergency Department stating that he ac cidentally took an isosorbide today which she had stopped taking because it makes him dizzy and feel lightheaded. Patient states took at 10:00 and he was working on his camper and he overexerted himself and he began to feel dizzy and then he passed out. His caught him and he had no injury and other than feeling dizzy prior to passing out he had no symptoms he denies chest pain difficulty breathing or shortness of breath per patient denies any fever chills or cough per patient states when he stood up EMS took his blood pressureextremely low at that time. Patient states currently has no symptoms at all as well. Patient states this is what happened in the past when he used to take his isosorbide and that is why he stopped taking it but today he actually took one. - Related Data Home Medications Medication Instructions Recorded Confirmed Aspirin EC [Ecotrin Low Dose] 81 mg PO DAILY 10/06/15 12/07/21 Cetirizine HCl [Zyrtec] 10 mg PO BID 10/06/15 12/07/21 Levothyroxine Sodium [Synthroid] 125 mcg PO DAILY 10/06/15 12/07/21 Metoprolol Succinate (ER) [Toprol 50 mg PO HS 10/06/15 12/07/21 XL] Probenecid/Colchicine 1 tab PO BID 10/06/15 12/07/21 [Probenecid-Colchicine Tablet] Simvastatin [Zocor] 20 mg PO DIRECTED 10/06/15 12/07/21 allopurinoL [Zyloprim] 300 mg PO DAILY 10/06/15 12/07/21 Multivit-Min/FA/Lycopen/Lutein 1 tab PO HS 11/10/20 12/07/21 [Centrum Silver Men Tablet] Bifidobacterium Infantis [Align] 4 mg PO DAILY 12/07/21 12/07/21 Hydrocortisone Cream 1 applic TOPICAL BID PRN 12/07/21 12/07/21 [Hydrocortisone 2.5% Cream] Allergies Allergy/AdvReac Type Severity Reaction Status Date / Time gluten Allergy celiac dx Verified 12/07/21 17:43 erythromycin base AdvReac pain in Verified 12/07/21 17:43 stomach antibiotic for H-pylori Allergy Unknown muscles Uncoded 12/07/21 17:43 tingling -needed steroids. Review of Systems ROS Statement: Those systems with pertinent positive or pertinent negative responses have been documented in the HPI. ROS Other: All systems not noted in ROS Statement are negative. Past Medical History Past Medical History: Coronary Artery Disease (CAD), Cancer, Hypertension, Thyroid Disorder Additional Past Medical History / Comment(s): HX OF SUBDURAL HEMATOMA., BASAL & SQUAMOUS CELL SKIN CANCER, COLON CANCER (SURGERY 10/2018).,COLON POLYPS, HIATAL HERNIA, GOUT, CELIAC DISEASE., HX OF H-PYLORI. History of Any Multi-Drug Resistant Organisms: None Reported Past Surgical History: Bowel Resection, Coronary Bypass/CABG, Heart Catheterization With Stent, Orthopedic Surgery Additional Past Surgical History / Comment(s): rt knee arthroscopy, 6 cardiac stents, nohelia cataracts, vasectomy, colonoscopy., BOWEL RESECTION (10/2018)., CABG x4 vessels 4 (2011). Past Anesthesia/Blood Transfusion Reactions: No Reported Reaction Additional Past Anesthesia/Blood Transfusion Reaction / Comment(s): States epidural pain medication post bowel resection caused confusion. Date of Last Stent Placement:: approx 2010 Past Psychological History: No Psychological Hx Reported Smoking Status: Former smoker Past Alcohol Use History: None Reported Past Drug Use History: None Reported - Past Family History Mother Family Medical History: Cancer Additional Family Medical History / Comment(s): BREAST CANCER Sister(s) Family Medical History: Cancer Additional Family Medical History / Comment(s): BREAST AND SKIN CANCER Brother(s) Family Medical History: Cancer Additional Family Medical History / Comment(s): SKIN CANCER General Exam - General Exam Comments Initial Comments: GENERAL: Patient is well-developed and well-nourished. Patient is nontoxic and well- hydrated and is in no acute distress. ENT: Neck is soft and supple. No significant lymphadenopathy is noted. Oropharynx is clear. Moist mucous membranes. Neck has full range of motion without eliciting any pain. EYES: The sclera were anicteric and conjunctiva were pink and moist. Extraocular movements were intact and pupils were equal round and reactive to light. Eyelids were unremarkable. PULMONARY: Unlabored respirations. Good breath sounds bilaterally. No audible rales rhonchi or wheezing was noted. CARDIOVASCULAR: There is a regular rate and rhythm without any murmurs gallops or rubs. ABDOMEN: Soft and nontender with normal bowel sounds. SKIN: Skin is clear with no lesions or rashes and otherwise unremarkable. NEUROLOGIC: Patient is alert and oriented x3. Cranial nerves II through XII are grossly intact. Motor and sensory are also intact. Normal speech, volume and content. Symmetrical smile. MUSCULOSKELETAL: Normal extremities with adequate strength and full range of motion. No lower extremity swelling or edema. No calf tenderness. LYMPHATICS: No significant lymphadenopathy is noted PSYCHIATRIC: Normal psychiatric evaluation. Limitations: no limitations Course Vital Signs 12/07/21 12/07/21 15:50 16:59 Temperature 97.7 F Pulse Rate 87 Pulse Rate [ 87 Sitting] Pulse Rate [ 87 Standing] Pulse Rate [ 85 Supine] Respiratory 20 Rate Blood Pressure 117/64 Blood Pressure 103/68 [Sitting] Blood Pressure 93/55 [Standing] Blood Pressure 97/53 [Supine] O2 Sat by Pulse 96 Oximetry Medical Decision Making - Medical Decision Making EKG shows sinus rhythm at 84 bpm HI interval is 168 QRSs 93 QT interval 393 QTC is 434. Patient's EKG shows no ST segment elevation or depression. Patient was given a liter of fluid in the emergency department. Patient was asymptomatic throughout the ED stay per patient was ambulated in the department without symptoms. Patient will be discharged home. - Lab Data Result diagrams: 12/07/21 16:39 12/07/21 16:39 Lab Results 12/07/21 12/07/21 12/07/21 Range/Units 16:39 16:39 16:39 WBC 6.9 (3.8-10.6) k/uL RBC 4.00 L (4.30-5.90) m/uL Hgb 14.0 (13.0-17.5) gm/dL Hct 41.8 (39.0-53.0) % MCV 104.6 H (80.0-100.0) fL MCH 35.0 (25.0-35.0) pg MCHC 33.5 (31.0-37.0) g/dL RDW 14.3 (11.5-15.5) % Plt Count 177 (150-450) k/uL MPV 8.6 Neutrophils % 58 % Lymphocytes % 30 % Monocytes % 6 % Eosinophils % 1 % Basophils % 1 % Neutrophils # 4.0 (1.3-7.7) k/uL Lymphocytes # 2.1 (1.0-4.8) k/uL Monocytes # 0.4 (0-1.0) k/uL Eosinophils # 0.1 (0-0.7) k/uL Basophils # 0.1 (0-0.2) k/uL Macrocytosis Moderate PT 11.0 (9.0-12.0) sec INR 1.0 (<1.2) APTT 23.6 (22.0-30.0) sec Sodium 138 (137-145) mmol/L Potassium 4.3 (3.5-5.1) mmol/L Chloride 103 (98-107) mmol/L Carbon Dioxide 23 (22-30) mmol/L Anion Gap 12 mmol/L BUN 17 (9-20) mg/dL Creatinine 1.23 (0.66-1.25) mg/dL Est GFR (CKD-EPI)AfAm 64 (>60 ml/min/1.73 sqM) Est GFR (CKD-EPI)NonAf 55 (>60 ml/min/1.73 sqM) Glucose 139 H (74-99) mg/dL Calcium 9.1 (8.4-10.2) mg/dL Magnesium 1.9 (1.6-2.3) mg/dL Total Bilirubin 0.6 (0.2-1.3) mg/dL AST 74 H (17-59) U/L ALT 71 H (4-49) U/L Alkaline Phosphatase 86 (38-126) U/L Troponin I (0.000-0.034) ng/mL Total Protein 6.9 (6.3-8.2) g/dL Albumin 4.0 (3.5-5.0) g/dL 12/07/21 Range/Units 16:39 WBC (3.8-10.6) k/uL RBC (4.30-5.90) m/uL Hgb (13.0-17.5) gm/dL Hct (39.0-53.0) % MCV (80.0-100.0) fL MCH (25.0-35.0) pg MCHC (31.0-37.0) g/dL RDW (11.5-15.5) % Plt Count (150-450) k/uL MPV Neutrophils % % Lymphocytes % % Monocytes % % Eosinophils % % Basophils % % Neutrophils # (1.3-7.7) k/uL Lymphocytes # (1.0-4.8) k/uL Monocytes # (0-1.0) k/uL Eosinophils # (0-0.7) k/uL Basophils # (0-0.2) k/uL Macrocytosis PT (9.0-12.0) sec INR (<1.2) APTT (22.0-30.0) sec Sodium (137-145) mmol/L Potassium (3.5-5.1) mmol/L Chloride (98-107) mmol/L Carbon Dioxide (22-30) mmol/L Anion Gap mmol/L BUN (9-20) mg/dL Creatinine (0.66-1.25) mg/dL Est GFR (CKD-EPI)AfAm (>60 ml/min/1.73 sqM) Est GFR (CKD-EPI)NonAf (>60 ml/min/1.73 sqM) Glucose (74-99) mg/dL Calcium (8.4-10.2) mg/dL Magnesium (1.6-2.3) mg/dL Total Bilirubin (0.2-1.3) mg/dL AST (17-59) U/L ALT (4-49) U/L Alkaline Phosphatase (38-126) U/L Troponin I <0.012 (0.000-0.034) ng/mL Total Protein (6.3-8.2) g/dL Albumin (3.5-5.0) g/dL Disposition Clinical Impression: Syncope, Adverse effects of medication Disposition: HOME SELF-CARE Condition: Good Instructions (If sedation given, give patient instructions): Syncope (ED) Additional Instructions: Patient should hold the 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 Is patient prescribed a controlled substance at d/c from ED?: No Referrals: Moe Ward MD [Primary Care Provider] - 1-2 days Time of Disposition: 18:43
[2021-12-07 16:42] LABS: Basophils # (A) 0.1 k/uL (0-0.2); Basophils % (A) 1 %; Eosinophils # (A) 0.1 k/uL (0-0.7); Eosinophils % (A) 1 %; HCT 41.8 % (39.0-53.0); Lymphocytes # (A) 2.1 k/uL (1.0-4.8); Lymphocytes % (A) 30 %; MCHC 33.5 g/dL (31.0-37.0); MCV 104.6 fL (80.0-100.0); Macrocytosis Moderate; Mean Platelet Volume 8.6; Monocytes # (A) 0.4 k/uL (0-1.0); Monocytes % (A) 6 %; Neutrophils % (A) 58 %; Platelet Count 177 k/uL (150-450); RDW 14.3 % (11.5-15.5); WBC 6.9 k/uL (3.8-10.6)
[2021-12-07 16:47] LABS: Calcium 9.1 mg/dL (8.4-10.2); Magnesium 1.9 mg/dL (1.6-2.3); Potassium 4.3 mmol/L (3.5-5.1); Total Bilirubin 0.6 mg/dL (0.2-1.3); Total Protein 6.9 g/dL (6.3-8.2)
[2021-12-07 16:51] LABS: Partial Thromboplastin Time 23.6 sec (22.0-30.0)
--- NOTE | 2021-12-07 17:55 | XR ---
EXAMINATION TYPE: XR chest 2V DATE OF EXAM: 12/07/2021 COMPARISON: 08/20/2018 HISTORY: Chest pain TECHNIQUE: 2 views FINDINGS: There is no heart failure nor confluent pneumonic infiltrate. Costophrenic angles are clear . There are chest leads. There are sternal wires. Bony thorax is intact. IMPRESSION: No active cardiopulmonary disease. Normal heart. No change.
[2021-12-07 19:11] VITALS: BP 154/81; PULSE 87; RESP 18
== END 2021-12-07 19:11 | disposition home or self-care (01) ==
LOC: EC 15:43
DX: R55 Syncope and collapse (principal); T50.905A Adverse effect of unspecified drugs, medicaments and biological substances, initial encounter; I25.10 Atherosclerotic heart disease of native coronary artery without angina pectoris; I10 Essential (primary) hypertension; E07.9 Disorder of thyroid, unspecified; Z87.891 Personal history of nicotine dependence; Z88.1 Allergy status to other antibiotic agents; Z88.8 Allergy status to other drugs, medicaments and biological substances; Z79.890 Hormone replacement therapy; Z79.82 Long term (current) use of aspirin; Z79.899 Other long term (current) drug therapy
CPT/HCPCS: 36415; 71046; 80053; 83735; 84484; 85025; 85610; 85730; 93005; 99284

== ENCOUNTER → 2021-12-28 | Outpatient (CLI) | payer MEDICARE ==
[2021-12-28 18:29] LABS: ALT 56 U/L (10-49); AST 51 U/L (14-35); African American GFR (CKD) 93.7 (60.0-200.0); Albumin 3.9 g/dL (3.8-4.9); Albumin/Globulin Ratio 1.49 (1.60-3.17); Alkaline Phosphatase 89 U/L (41-126); BUN/Creat Ratio 20.18 Ratio (12.00-20.00); Blood Urea Nitrogen 17.6 mg/dL (9.0-27.0); Calcium 9.2 mg/dL (8.7-10.3); Carbon Dioxide 25.1 mmol/L (20.0-27.5); Chloride 106 mmol/L (96-109); Chol/HDL Ratio 3.36 Ratio; Globulin 2.6 g/dL (1.6-3.3); Glucose 105 mg/dL (70-110); LDL Cholesterol,Calculated 66.3 mg/dL (0.0-131.0); Non-African American GFR(CKD) 80.9 (60.0-200.0); Potassium 4.3 mmol/L (3.5-5.5); Sodium 141 mmol/L (135-145); Total Protein 6.5 g/dL (6.2-8.2)
== END | disposition home or self-care (01) ==
LOC: LABWHC1 10:42
PROVIDERS: ATTEND Internal Medicine Interventional Cardiology
DX: E78.2 Mixed hyperlipidemia (principal)
CPT/HCPCS: 36415; 80053; 80061

== ENCOUNTER → 2022-06-06 | Outpatient (CLI) | payer MEDICARE ==
[2022-06-06 16:27] LABS: ALT 75 U/L (10-49); AST 62 U/L (14-35); Chol/HDL Ratio 3.95 Ratio; LDL Cholesterol,Calculated 51.2 mg/dL (0.0-131.0)
== END | disposition home or self-care (01) ==
LOC: LABWHC1 09:03
PROVIDERS: ATTEND Internal Medicine Interventional Cardiology
DX: E78.2 Mixed hyperlipidemia (principal)
CPT/HCPCS: 36415; 80061; 84450; 84460

== ENCOUNTER → 2022-11-02 | Outpatient (CLI) | payer MEDICARE ==
[2022-11-02 16:04] LABS: ALT 62 U/L (10-49); AST 78 U/L (14-35); Albumin/Globulin Ratio 1.38 Ratio (1.60-3.17); Alkaline Phosphatase 126 U/L (41-126); BUN/Creat Ratio 17.44 Ratio (12.00-20.00); Blood Urea Nitrogen 15.7 mg/dL (9.0-27.0); Calcium 9.4 mg/dL (8.7-10.3); Carbon Dioxide 22.9 mmol/L (21.6-31.8); Chloride 104 mmol/L (96-109); Chol/HDL Ratio 3.82 Ratio; Globulin 2.9 d/dL (1.6-3.3); Glucose 109 mg/dL (70-110); LDL Cholesterol,Calculated 52.8 mg/dL (0.0-131.0); Potassium 4.2 mmol/L (3.5-5.5); Sodium 140 mmol/L (135-145); Total Bilirubin 0.6 mg/dL (0.3-1.2); Total Protein 6.9 d/dL (6.2-8.2)
== END | disposition home or self-care (01) ==
LOC: LABWHC1 09:48
PROVIDERS: ATTEND Internal Medicine Interventional Cardiology
DX: E78.2 Mixed hyperlipidemia (principal)
CPT/HCPCS: 36415; 80053; 80061

== ENCOUNTER → 2023-06-27 | Outpatient (CLI) | payer MEDICARE ==
[2023-06-27 15:31] LABS: ALT 44 U/L (10-49); AST 69 U/L (14-35); Albumin/Globulin Ratio 1.33 Ratio (1.60-3.17); Alkaline Phosphatase 146 U/L (41-126); Blood Urea Nitrogen 17.1 mg/dL (9.0-27.0); Calcium 9.7 mg/dL (8.7-10.3); Carbon Dioxide 23.2 mmol/L (21.6-31.8); Chloride 104 mmol/L (96-109); Chol/HDL Ratio 3.31 Ratio; Glucose 112 mg/dL (70-110); LDL Cholesterol,Calculated 57.6 mg/dL (0.0-131.0); Sodium 139 mmol/L (135-145); Total Bilirubin 0.6 mg/dL (0.3-1.2)
== END | disposition home or self-care (01) ==
LOC: LABWHC1 09:41
PROVIDERS: ATTEND Internal Medicine Interventional Cardiology
DX: I10 Essential (primary) hypertension (principal); E78.2 Mixed hyperlipidemia
CPT/HCPCS: 36415; 80053; 80061

== ENCOUNTER → 2023-12-29 | Outpatient (CLI) | payer MEDICARE ==
[2023-12-29 16:17] LABS: ALT 51 U/L (10-49); AST 58 U/L (14-35); Chol/HDL Ratio 3.24 Ratio; LDL Cholesterol,Calculated 56.3 mg/dL (0.0-131.0)
== END | disposition home or self-care (01) ==
LOC: LABWHC1 10:45
PROVIDERS: ATTEND Nurse Practitioner Adult Health
DX: E78.2 Mixed hyperlipidemia (principal)
CPT/HCPCS: 36415; 80061; 84450; 84460

== ENCOUNTER → 2024-06-06 | Day surgery (SDC) | payer MEDICARE ==
[2024-06-05 09:28] VITALS: BMI 31.1
[~2024-06-06] MED LIST changes: -LACTATED RINGERS 1,000 ML IV SCH; +PHENYLEPHRINE-0.9% NACL SYG 1,000 MCG/10 ML SYRINGE ONE; +PROPOFOL 10 MG/ML 20 ML VIAL IV ONE
[2024-06-06 06:58] VITALS: TEMP 97
[2024-06-06] MEDS: LACTATED RINGERS 1,000 ML IV ONE (06:58)
[2024-06-06] MEDS: LACTATED RINGERS 1,000 ML IV SCH (07:10)
[2024-06-06 07:16] LABS: Glucose,Whole Blood 80 mg/dL (70-110)
--- NOTE | 2024-06-06 07:45 | P.GSHP ---
History of Present Illness H&P Date: 06/06/24 Chief Complaint: History of colon cancer This is a 84-year-old male who is a previous history of splenic flexure colon cancer. Patient presents today for colonoscopy. Patient denies any significant GI complaints. Past Medical History Past Medical History: Coronary Artery Disease (CAD), Cancer, Hyperlipidemia, Hypertension, Thyroid Disorder Additional Past Medical History / Comment(s): HX OF SUBDURAL HEMATOMA fall 2 years ago., BASAL & SQUAMOUS CELL SKIN CANCER, COLON CANCER (SURGERY 10/2018).,COLON POLYPS, HIATAL HERNIA, GOUT, CELIAC DISEASE., HX OF H-PYLORI. History of Any Multi-Drug Resistant Organisms: None Reported Past Surgical History: Bowel Resection, Coronary Bypass/CABG, Heart Catheterization With Stent, Orthopedic Surgery Additional Past Surgical History / Comment(s): rt knee arthroscopy, 6 cardiac stents, nohelia cataracts, vasectomy, colonoscopy yearly., BOWEL RESECTION (10/2018)., CABG x4 vessels 4 (2011). removal of skin cancer Past Anesthesia/Blood Transfusion Reactions: No Reported Reaction Additional Past Anesthesia/Blood Transfusion Reaction / Comment(s): States epidural pain medication post bowel resection caused confusion. Date of Last Stent Placement:: 2010 Smoking Status: Former smoker - Past Family History Mother Family Medical History: Cancer Additional Family Medical History / Comment(s): BREAST CANCER Sister(s) Family Medical History: Cancer Additional Family Medical History / Comment(s): BREAST AND SKIN CANCER Brother(s) Family Medical History: Cancer Additional Family Medical History / Comment(s): SKIN CANCER Medications and Allergies Home Medications Medication Instructions Recorded Confirmed Type Aspirin EC [Ecotrin Low Dose] 81 mg PO DAILY 10/06/15 06/05/24 History Cetirizine HCl [Zyrtec] 10 mg PO BID 10/06/15 06/05/24 History Levothyroxine Sodium [Synthroid] 125 mcg PO DAILY 10/06/15 06/05/24 History Metoprolol Succinate (ER) [Toprol 50 mg PO HS 10/06/15 06/05/24 History XL] Probenecid/Colchicine 1 tab PO BID 10/06/15 06/05/24 History [Probenecid-Colchicine Tablet] Simvastatin [Zocor] 20 mg PO DAILY 10/06/15 06/05/24 History allopurinoL [Zyloprim] 300 mg PO DAILY 10/06/15 06/05/24 History Bifidobacterium Infantis [Align] 4 mg PO DAILY 12/07/21 06/05/24 History Losartan Potassium [Cozaar] 100 mg PO DAILY 12/06/22 06/05/24 History Metaxalone [Skelaxin] 800 mg PO Q8HR PRN 06/05/24 06/05/24 History Allergies Allergy/AdvReac Type Severity Reaction Status Date / Time gluten Allergy celiac dx Verified 06/05/24 09:15 erythromycin base AdvReac pain in Verified 06/05/24 09:15 stomach antibiotic for H-pylori Allergy Unknown muscles Uncoded 06/05/24 09:15 tingling -needed steroids. Surgical - Exam Vital Signs Temp Pulse Resp BP Pulse Ox 97 F L 58 L 18 97/59 97 06/06/24 06:57 06/06/24 06:57 06/06/24 06:57 06/06/24 06:57 06/06/24 06:57 - General well developed, well nourished, no distress - Eyes PERRL - ENT normal pinna - Neck no masses - Respiratory normal expansion - Cardiovascular Rhythm: regular - Abdomen Abdomen: soft, non tender Assessment and Plan Assessment: History of colon cancer. Will perform colonoscopy.
--- NOTE | 2024-06-06 08:06 | P.OP ---
Date of Procedure: 06/06/24 Preoperative Diagnosis: History of left colon cancer Postoperative Diagnosis: No evidence of recurrent colon cancer Diverticulosis Left colon polyp Procedure(s) Performed: Colonoscopy Anesthesia: MAC Surgeon: Terry Broderick Pathology: other (Colon polyp) Condition: stable Disposition: PACU Description of Procedure: Patient was placed on the endoscopy table in the lateral position. He received IV sedation. Digital rectal exams performed. This revealed no abnormalities. The flexible colonoscope was then placed [facility] colon. The colonic anastomosis was visualized. The scope could not be passed through the area due to tortuosity of the colon. Several subcentimeter. Scope then withdrawn. There was diverticular changes noted in the colon. At the 45 cm rad there was a polyp seen. This removed with a cold forcep. Scope was withdrawn from patient.
[2024-06-06 08:12] VITALS: RESP 16
[2024-06-06 08:38] VITALS: BP 128/57; PULSE 58
== END ==
LOC: ORWHC2ENDO 06:30
PROVIDERS: ATTEND Surgery
DX: D12.4 Benign neoplasm of descending colon (principal); Z85.038 Personal history of other malignant neoplasm of large intestine; I25.10 Atherosclerotic heart disease of native coronary artery without angina pectoris; E78.5 Hyperlipidemia, unspecified; I10 Essential (primary) hypertension; E03.9 Hypothyroidism, unspecified; Z79.890 Hormone replacement therapy; Z95.1 Presence of aortocoronary bypass graft; Z95.5 Presence of coronary angioplasty implant and graft; Z87.891 Personal history of nicotine dependence; Z79.82 Long term (current) use of aspirin; Z88.1 Allergy status to other antibiotic agents
CPT/HCPCS: 45380; J2704; J2371; 88305

== ENCOUNTER → 2024-07-01 | Outpatient (CLI) | payer MEDICARE ==
[2024-07-01 15:26] LABS: ALT 32 U/L (10-49); AST 41 U/L (14-35); Chol/HDL Ratio 3.77 Ratio; LDL Cholesterol,Calculated 52.2 mg/dL (0.0-131.0)
== END | disposition home or self-care (01) ==
LOC: LABWHC1 09:49
PROVIDERS: ATTEND Internal Medicine Interventional Cardiology
DX: E78.2 Mixed hyperlipidemia (principal)
CPT/HCPCS: 36415; 80061; 84450; 84460